=== PATIENT | male | born 1975 | race Caucasian/White ===

== ENCOUNTER 2020-03-10 15:19 | Outpatient (REF) | payer MEDICARE, MEDICAID, SELFPAY ==
[2020-03-10 16:20] LABS: MANUAL DIFF FLAG NO
[2020-03-10 16:29] LABS: Basophils Absolute Auto 0.1 X10*3/uL (0.0-0.2); Basophils Percent Auto 0.9 % (0-2); Eosinophils Absolute Auto 0.1 X10*3/uL (0.0-0.4); Eosinophils Percent Auto 1.9 % (0-4); Hematocrit 42.4 % (42-52); Hemoglobin 14.1 g/dl (14.0-18.0); Imm Gran Abs Auto 0.02 X10*3/uL (0.00-0.03); Imm Gran Pct Auto 0.3 % (0.0-0.4); Lymphocytes Absolute Auto 1.6 X10*3/uL (1.2-4.9); Lymphocytes Percent Auto 27.3 % (20-40); Mean Corpuscular HGB Conc 33.3 g/dl (31.0-36.0); Mean Corpuscular Volume 93.2 fL (80-98); Mean Platelet Volume 9.8 fL (9.4-12.4); Monocytes Absolute Auto 0.5 X10*3/uL (0.1-1.2); Monocytes Percent Auto 8.9 % (2-11); Neutrophils Absolute Auto 3.6 X10*3/uL (2.0-8.3); Neutrophils Percent Auto 60.7 % (45-73); Platelet Count 268 X10*3/uL (160-400); Red Blood Count 4.55 X10*6/uL (4.60-5.80); Red Cell Distribution Width 13.6 % (11.0-16.0); White Blood Count 5.9 X10*3/uL (4.8-10.8)
[2020-03-10 16:53] LABS: Alanine Aminotransferase 23 U/L (0-40); Albumin Level 4.7 g/dL (3.5-5.0); Alkaline Phosphatase 112 U/L (39-117); Anion Gap 13 (12-20); Aspartate Amino Transferase 18 U/L (5-37); Bilirubin Total 0.5 mg/dL (0.0-1.0); Blood Urea Nitrogen 15 mg/dL (9-16); C Reactive Protein 0.33 mg/dL (< or = 0.50); Calcium 9.6 mg/dL (8.4-10.2); Carbon Dioxide 26 mmol/L (22-29); Chloride 107 mmol/L (96-108); Estimated Glomerular Filt Rate > 60; Glucose Random 63 mg/dL (60-115); Potassium 4.4 mmol/l (3.3-5.1); Sodium 142 mmol/L (135-145); Total Protein 7.5 g/dL (6.5-8.0)
[2020-03-10 17:15] LABS: TSH reflex Free T4 1.23 mIU/mL (0.32-4.0)
[2020-03-10 17:30] LABS: Erythrocyte Sedimentation Rate 7 MM/HR (0-15)
[2020-03-13 00:02] LABS: Anti Nuclear Antibody Screen POSITIVE (NEGATIVE); Anti Nuclear Antibody Titer 1:40 titer
== END 2020-03-10 15:20 | disposition home or self-care (01) ==
LOC: HO.LAB 15:19
PROVIDERS: PCP Internal Medicine; Visit Provider Internal Medicine
DX: R21 Rash and other nonspecific skin eruption (principal); R76.8 Other specified abnormal immunological findings in serum
CPT/HCPCS: 36415; 80053; 84443; 85025; 85652; 86038; 86039; 86140

== ENCOUNTER 2020-10-02 12:51 | Outpatient (REF) | payer MEDICARE, MEDICAID, SELFPAY ==
--- NOTE | ~2020-10-02 | XR_ITS ---
EXAMINATION: XR HAND, RIGHT XR HAND, LEFT CLINICAL INFORMATION: Pain. COMPARISON: Bilateral hand and wrist radiographs dated 10/31/2018. TECHNIQUE: AP, oblique, and lateral views of the right and left hand and wrist. FINDINGS: Right Hand: No fracture or dislocation. Normal carpal alignment. No significant joint space narrowing or marginal osteophytes. No osseous erosion. No periarticular osteopenia. No abnormal soft tissue calcification. Left Hand: Redemonstration of an orthopedic screw within the scaphoid. No hardware fracture. Attenuation and irregularity through the proximal aspect of the scaphoid which appears similar when compared to the prior examination and likely represents chronic avascular necrosis. Unchanged anatomic alignment. No acute fracture or dislocation. Degenerative spurring redemonstrated posteriorly, unchanged. No new osseous erosion. XR/XR hand LT min 3V IMPRESSION: RIGHT HAND: Unremarkable examination. LEFT HAND: Orthopedic screw redemonstrated within the scaphoid. Attenuation of the proximal scaphoid with possible fragmentation and dorsal spurring, unchanged when compared to the prior examination. Findings likely represent chronic avascular necrosis.
--- NOTE | ~2020-10-02 | XR_ITS ---
EXAMINATION: XR HAND, RIGHT XR HAND, LEFT CLINICAL INFORMATION: Pain. COMPARISON: Bilateral hand and wrist radiographs dated 10/31/2018. TECHNIQUE: AP, oblique, and lateral views of the right and left hand and wrist. FINDINGS: Right Hand: No fracture or dislocation. Normal carpal alignment. No significant joint space narrowing or marginal osteophytes. No osseous erosion. No periarticular osteopenia. No abnormal soft tissue calcification. Left Hand: Redemonstration of an orthopedic screw within the scaphoid. No hardware fracture. Attenuation and irregularity through the proximal aspect of the scaphoid which appears similar when compared to the prior examination and likely represents chronic avascular necrosis. Unchanged anatomic alignment. No acute fracture or dislocation. Degenerative spurring redemonstrated posteriorly, unchanged. No new osseous erosion. XR/XR hand RT min 3V IMPRESSION: RIGHT HAND: Unremarkable examination. LEFT HAND: Orthopedic screw redemonstrated within the scaphoid. Attenuation of the proximal scaphoid with possible fragmentation and dorsal spurring, unchanged when compared to the prior examination. Findings likely represent chronic avascular necrosis.
[2020-10-02 14:02] LABS: MANUAL DIFF FLAG NO
[2020-10-02 14:17] LABS: Basophils Percent Auto 0.4 % (0-2); Eosinophils Absolute Auto 0.1 X10*3/uL (0.0-0.4); Eosinophils Percent Auto 1.7 % (0-4); Hematocrit 40.4 % (42-52); Hemoglobin 13.4 g/dl (14.0-18.0); Imm Gran Abs Auto 0.02 X10*3/uL (0.00-0.03); Imm Gran Pct Auto 0.3 % (0.0-0.4); Lymphocytes Absolute Auto 1.6 X10*3/uL (1.2-4.9); Lymphocytes Percent Auto 22.1 % (20-40); Mean Corpuscular HGB Conc 33.2 g/dl (31.0-36.0); Mean Corpuscular Volume 93.5 fL (80-98); Mean Platelet Volume 9.5 fL (9.4-12.4); Monocytes Absolute Auto 0.5 X10*3/uL (0.1-1.2); Monocytes Percent Auto 6.6 % (2-11); Neutrophils Absolute Auto 4.8 X10*3/uL (2.0-8.3); Neutrophils Percent Auto 68.9 % (45-73); Platelet Count 234 X10*3/uL (160-400); Red Blood Count 4.32 X10*6/uL (4.60-5.80); Red Cell Distribution Width 13.4 % (11.0-16.0)
[2020-10-02 14:36] LABS: Alanine Aminotransferase 22 U/L (0-40); Albumin Level 4.2 g/dL (3.5-5.0); Alkaline Phosphatase 108 U/L (39-117); Anion Gap 12 (12-20); Aspartate Amino Transferase 17 U/L (5-37); Bilirubin Total 0.2 mg/dL (0.0-1.0); Blood Urea Nitrogen 25 mg/dL (9-16); C Reactive Protein 0.36 mg/dL (< or = 0.50); Carbon Dioxide 27 mmol/L (22-29); Chloride 107 mmol/L (96-108); Estimated Glomerular Filt Rate > 60; Glucose Random 101 mg/dL (60-115); Potassium 4.8 mmol/L (3.3-5.1); Rheumatoid Factor < 15.0 IU/mL (<15.0); Sodium 141 mmol/L (135-145); Total Protein 6.8 g/dL (6.5-8.0)
[2020-10-02 14:46] LABS: Glucose Urine UA NEG (NEG); Leukocyte Esterase Urine NEG (NEG); Nitrite Urine NEG (NEG); PH 6.5 (5.0-8.0); Urine Blood NEG (NEG); Urine Ketones NEG (NEG); Urine Protein NEG (NEG-TRACE)
[2020-10-02 14:57] LABS: Thyroid Stimulating Hormone 0.38 uIU/mL (0.32-4.0)
[2020-10-02 15:04] LABS: Appearance Urine CLEAR; Color Urine YELLOW
[2020-10-02 15:06] LABS: Erythrocyte Sedimentation Rate 7 MM/HR (0-15)
[2020-10-02 15:55] LABS: RBC Urine 0-2 /HPF (0); WBC Urine 0-2 /HPF (0-4)
[2020-10-02 15:56] LABS: Squamous Epithelial Cell Urine 1+ /LPF
[2020-10-03 12:31] LABS: Anti DNA DS Antibody 1 IU/mL; Antibody to SS-A Antigen <1.0 NEG AI (<1.0 NEG); Antibody to SS-B Antigen <1.0 NEG AI (<1.0 NEG); SM/Ribonucleoprotein Ab <1.0 NEG AI (<1.0 NEG); Scleroderma 70 Antibody <1.0 NEG AI (<1.0 NEG); Smith Protein <1.0 NEG AI (<1.0 NEG)
[2020-10-05 13:06] LABS: Complement C3 135 mg/dL (82-185)
[2020-10-05 18:46] LABS: Thyroglobulin Antibodies <1 IU/mL (< or = 1); Thyroid Peroxidase Antibodies <1 IU/mL (<9)
[2020-10-06 22:36] LABS: Cyclic Citrullinated Peptide <16 UNITS
== END 2020-10-02 12:52 | disposition home or self-care (01) ==
LOC: HO.LAB 12:51
PROVIDERS: PCP Internal Medicine; Visit Provider Student in an Organized Health Care Education/Training Program
DX: R76.8 Other specified abnormal immunological findings in serum (principal); F31.9 Bipolar disorder, unspecified; F17.210 Nicotine dependence, cigarettes, uncomplicated; Z79.899 Other long term (current) drug therapy
CPT/HCPCS: 36415; 73130; 80053; 81001; 84443; 85025; 85652; 86140; 86160; 86200; 86225; 86235; 86376; 86431; 86800; 99202

== ENCOUNTER → 2020-10-28 11:38 | Outpatient (BNVA) | payer MEDICARE, MEDICAID, SELFPAY | PROVIDERS: PCP Internal Medicine; Visit Provider Student in an Organized Health Care Education/Training Program | DX: R76.8 Other specified abnormal immunological findings in serum (principal) | CPT/HCPCS: 99212 ==

== ENCOUNTER 2021-02-24 15:58 | Outpatient (REF) | payer MEDICARE, MEDICAID, SELFPAY ==
--- NOTE | ~2021-02-24 | XR_ITS ---
EXAMINATION: XR CERVICAL SPINE CLINICAL INFORMATION: Cervicalgia COMPARISON: None TECHNIQUE: 3 views of the cervical spine were obtained. FINDINGS: There are no prevertebral soft tissue or bony abnormalities demonstrated. No compression fractures or subluxations are identified. Alignment is maintained at the atlanto-axial articulation. The disc spaces are preserved. No endplate changes are seen. The prevertebral soft tissues are normal. XR/XR cervical spine 3V IMPRESSION: Unremarkable examination.
--- NOTE | ~2021-02-24 | XR_ITS ---
EXAMINATION: XR LUMBOSACRAL SPINE CLINICAL INFORMATION: Low back pain. COMPARISON: None TECHNIQUE: 3 views of the lumbosacral spine. FINDINGS: The vertebral bodies and posterior elements are normal. The disc spaces are preserved and the vertebral alignment is normal. The paraspinal soft tissues are normal. XR/XR lumbar spine 2-3V IMPRESSION: Unremarkable examination.
[2021-02-24 16:09] LABS: MANUAL DIFF FLAG NO
[2021-02-24 16:32] LABS: Basophils Percent Auto 0.4 % (0-2); Eosinophils Absolute Auto 0.2 X10*3/uL (0.0-0.4); Hematocrit 40.4 % (42.0-52.0); Hemoglobin 13.6 g/dl (14.0-18.0); Imm Gran Abs Auto 0.02 X10*3/uL (0.00-0.03); Imm Gran Pct Auto 0.3 % (0.0-0.4); Lymphocytes Absolute Auto 1.8 X10*3/uL (1.2-4.9); Lymphocytes Percent Auto 24.2 % (20-40); Mean Corpuscular HGB Conc 33.7 g/dl (31.0-36.0); Mean Corpuscular Hemoglobin 30.9 pg (27.0-33.0); Mean Corpuscular Volume 91.8 fL (80.0-98.0); Mean Platelet Volume 9.1 fL (9.4-12.4); Monocytes Absolute Auto 0.6 X10*3/uL (0.1-1.2); Monocytes Percent Auto 7.5 % (2-11); Neutrophils Absolute Auto 4.8 x10*3/uL (2.0-8.3); Neutrophils Percent Auto 64.6 % (45-73); Platelet Count 272 X10*3/uL (160-400); Red Cell Distribution Width 13.2 % (11.0-16.0); White Blood Count 7.4 X10*3/uL (4.8-10.8)
[2021-02-24 16:55] LABS: Alanine Aminotransferase 20 U/L (0-40); Albumin Level 4.3 g/dL (3.5-5.0); Alkaline Phosphatase 106 U/L (39-117); Anion Gap 11 (12-20); Aspartate Amino Transferase 15 U/L (5-37); Bilirubin Total 0.4 mg/dL (0.0-1.0); Blood Urea Nitrogen 16 mg/dL (9-16); Calcium 8.9 mg/dL (8.4-10.2); Carbon Dioxide 26 mmol/L (22-29); Chloride 107 mmol/L (96-108); Cholesterol 238 mg/dL; Estimated Glomerular Filt Rate 58; Glucose Fasting 94 mg/dL (60-99); HDL Cholesterol 39 mg/dL; LDL Cholesterol Calculated 145 mg/dl; Potassium 4.6 mmol/L (3.3-5.1); Sodium 139 mmol/L (135-145); Triglycerides 273 mg/dL
[2021-02-24 17:18] LABS: Prostate Specific Antigen 0.48 ng/mL (<0.05-4.0); TSH reflex Free T4 1.12 uIU/mL (0.32-4.0); Vitamin D 25-OH Total 21.8 ng/mL (>30)
[2021-02-24 17:30] LABS: Erythrocyte Sedimentation Rate 7 MM/HR (0-15)
[2021-02-24 18:12] LABS: Appearance Urine CLEAR; Color Urine YELLOW; Glucose Urine UA NEG (NEG); Leukocyte Esterase Urine NEG (NEG); Nitrite Urine NEG (NEG); Specific Gravity - Urine 1.025 (1.005-1.025); Urine Blood NEG (NEG); Urine Ketones NEG (NEG); Urine Protein NEG (NEG-TRACE)
[2021-02-27 12:07] LABS: Anti Nuclear Antibody Screen NEGATIVE (NEGATIVE)
== END 2021-02-24 15:59 | disposition home or self-care (01) ==
LOC: HO.XRAY 15:58
PROVIDERS: PCP Internal Medicine; Visit Provider Internal Medicine
DX: Z12.5 Encounter for screening for malignant neoplasm of prostate (principal); M54.50 Low back pain, unspecified; M54.10 Radiculopathy, site unspecified; M54.2 Cervicalgia; R10.9 Unspecified abdominal pain; E78.00 Pure hypercholesterolemia, unspecified; I10 Essential (primary) hypertension; R21 Rash and other nonspecific skin eruption; R76.8 Other specified abnormal immunological findings in serum; E55.9 Vitamin D deficiency, unspecified; N40.0 Benign prostatic hyperplasia without lower urinary tract symptoms
CPT/HCPCS: 36415; 72040; 72100; 80053; 80061; 81003; 82306; 84153; 84443; 85025; 85652; 86038; 86039

== ENCOUNTER 2021-08-18 14:46 | Outpatient (REF) | payer MEDICARE, MEDICAID, SELFPAY ==
[2021-08-18 14:57] LABS: MANUAL DIFF FLAG NO
[2021-08-18 15:26] LABS: Basophils Percent Auto 0.7 % (0-2); Eosinophils Absolute Auto 0.1 X10*3/uL (0.0-0.4); Eosinophils Percent Auto 1.2 % (0-4); Hematocrit 43.3 % (42.0-52.0); Hemoglobin 14.3 g/dl (14.0-18.0); Imm Gran Abs Auto 0.02 X10*3/uL (0.00-0.03); Imm Gran Pct Auto 0.3 % (0.0-0.4); Lymphocytes Absolute Auto 1.5 X10*3/uL (1.2-4.9); Lymphocytes Percent Auto 25.6 % (20-40); Mean Corpuscular Hemoglobin 30.7 pg (27.0-33.0); Mean Corpuscular Volume 92.9 fL (80.0-98.0); Mean Platelet Volume 9.5 fL (9.4-12.4); Monocytes Absolute Auto 0.5 X10*3/uL (0.1-1.2); Monocytes Percent Auto 8.8 % (2-11); Neutrophils Absolute Auto 3.7 x10*3/uL (2.0-8.3); Neutrophils Percent Auto 63.4 % (45-73); Platelet Count 299 X10*3/uL (160-400); Red Blood Count 4.66 X10*6/uL (4.60-5.80); Red Cell Distribution Width 13.5 % (11.0-16.0); White Blood Count 5.8 X10*3/uL (4.8-10.8)
[2021-08-18 15:48] LABS: Alanine Aminotransferase 32 U/L (0-40); Albumin Level 4.4 g/dL (3.5-5.0); Alkaline Phosphatase 126 U/L (39-117); Anion Gap 10 (12-20); Aspartate Amino Transferase 20 U/L (5-37); Bilirubin Total 0.2 mg/dL (0.0-1.0); Blood Urea Nitrogen 16 mg/dL (9-16); Calcium 9.6 mg/dL (8.4-10.2); Carbon Dioxide 28 mmol/L (22-29); Chloride 108 mmol/L (96-108); Cholesterol 326 mg/dL; Estimated Glomerular Filt Rate 58; Glucose Fasting 104 mg/dL (60-99); HDL Cholesterol 43 mg/dL; Potassium 4.4 mmol/L (3.3-5.1); Sodium 142 mmol/L (135-145); Total Protein 7.8 g/dL (6.5-8.0); Triglycerides 504 mg/dL
[2021-08-18 16:08] LABS: Prostate Specific Antigen Scr 0.67 ng/mL (<0.05-4.0); TSH reflex Free T4 1.83 uIU/mL (0.32-4.0)
[2021-08-20 15:01] LABS: Anti Nuclear Antibody Screen NEGATIVE (NEGATIVE)
[2021-08-21 08:02] LABS: Anti DNA DS Antibody <1 IU/mL
== END 2021-08-18 14:47 | disposition home or self-care (01) ==
LOC: HO.LAB 14:46
PROVIDERS: PCP Internal Medicine; Visit Provider Internal Medicine
DX: Z00.00 Encounter for general adult medical examination without abnormal findings (principal); Z12.5 Encounter for screening for malignant neoplasm of prostate; R76.8 Other specified abnormal immunological findings in serum; I10 Essential (primary) hypertension; E78.00 Pure hypercholesterolemia, unspecified; E55.9 Vitamin D deficiency, unspecified
CPT/HCPCS: 36415; 80053; 80061; 82306; 84153; 84443; 85025; 86038; 86039; 86225

== ENCOUNTER 2022-03-30 12:30 | Outpatient (REF) | payer MEDICARE, MEDICAID, SELFPAY ==
[2022-03-30 12:41] LABS: MANUAL DIFF FLAG NO
[2022-03-30 13:30] LABS: Basophils Percent Auto 0.5 % (0-2); Eosinophils Absolute Auto 0.2 X10*3/uL (0.0-0.4); Eosinophils Percent Auto 3.4 % (0-4); Hematocrit 42.5 % (42.0-52.0); Hemoglobin 13.9 g/dl (14.0-18.0); Imm Gran Abs Auto 0.02 X10*3/uL (0.00-0.03); Imm Gran Pct Auto 0.3 % (0.0-0.4); Lymphocytes Absolute Auto 1.7 X10*3/uL (1.2-4.9); Lymphocytes Percent Auto 26.7 % (20-40); Mean Corpuscular HGB Conc 32.7 g/dl (31.0-36.0); Mean Corpuscular Hemoglobin 30.2 pg (27.0-33.0); Mean Corpuscular Volume 92.4 fL (80.0-98.0); Mean Platelet Volume 9.6 fL (9.4-12.4); Monocytes Absolute Auto 0.5 X10*3/uL (0.1-1.2); Monocytes Percent Auto 8.4 % (2-11); Neutrophils Absolute Auto 3.8 x10*3/uL (2.0-8.3); Neutrophils Percent Auto 60.7 % (45-73); Platelet Count 279 X10*3/uL (160-400); Red Cell Distribution Width 13.3 % (11.0-16.0); White Blood Count 6.2 X10*3/uL (4.8-10.8)
[2022-03-30 14:07] LABS: Alanine Aminotransferase 23 U/L (0-40); Albumin Level 4.1 g/dL (3.5-5.0); Alkaline Phosphatase 95 U/L (39-117); Anion Gap 12 (12-20); Aspartate Amino Transferase 19 U/L (5-37); Bilirubin Total 0.5 mg/dL (0.0-1.0); Blood Urea Nitrogen 13 mg/dL (9-16); Calcium 8.9 mg/dL (8.4-10.2); Carbon Dioxide 28 mmol/L (22-29); Chloride 106 mmol/L (96-108); Cholesterol 238 mg/dL; Estimated Glomerular Filt Rate > 60; Glucose Fasting 93 mg/dL (60-99); HDL Cholesterol 36 mg/dL; LDL Cholesterol Calculated 136 mg/dl; Potassium 4.5 mmol/L (3.3-5.1); Sodium 141 mmol/L (135-145); TSH reflex Free T4 0.46 uIU/mL (0.32-4.0); Total Protein 6.5 g/dL (6.5-8.0); Triglycerides 334 mg/dL; Vitamin D 25-OH Total 14.3 ng/mL (>30)
== END 2022-03-30 12:31 | disposition home or self-care (01) ==
LOC: HO.LAB 12:30
PROVIDERS: PCP Internal Medicine; Visit Provider Internal Medicine
DX: E78.00 Pure hypercholesterolemia, unspecified (principal); E55.9 Vitamin D deficiency, unspecified; I10 Essential (primary) hypertension
CPT/HCPCS: 36415; 80053; 80061; 82306; 84443; 85025

== ENCOUNTER → 2022-05-18 15:03 | Outpatient (BNVA) | payer MEDICARE, MEDICAID, SELFPAY | PROVIDERS: PCP Internal Medicine; Visit Provider Nurse Practitioner Family | DX: N50.819 Testicular pain, unspecified (principal); N52.9 Male erectile dysfunction, unspecified | CPT/HCPCS: 51798; 99202 ==

== ENCOUNTER 2022-06-08 15:00 | Outpatient (REF) | payer MEDICARE, MEDICAID, SELFPAY ==
--- NOTE | ~2022-06-08 | US_ITS ---
EXAMINATION: US SCROTUM CLINICAL INFORMATION: Testicular pain, unspecified. COMPARISON: None TECHNIQUE: A sonogram of the scrotum was performed assessing maria-scale appearance and color Doppler flow. Spectral Doppler analysis of the arterial and venous flow were performed in the testes bilaterally. FINDINGS: RIGHT: Right testicle measures 4.6 x 2.3 x 2.8 cm, volume 15.5 mL. No focal testicular parenchymal lesions are visualized. Spectral Doppler analysis of the arterial and venous flow is normal in the right testis. Right epididymal head is normal in size. No right varicocele is seen. Right epididymal Doppler flow is normal. LEFT: Left testicle measures 4.4 x 2.6 x 3.0 cm, volume 18.3 mL. No focal testicular parenchymal lesions are visualized. Spectral Doppler analysis of the arterial and venous flow is normal in the left testis. Left epididymal head is normal in size. There is a small left hydrocele. No varicocele is seen. Left epididymal Doppler flow is normal. US/US scrotum IMPRESSION: 1. No testicular mass or torsion is seen bilaterally. There is no varicocele. 2. There is a small right hydrocele.
== END 2022-06-08 15:01 | disposition home or self-care (01) ==
LOC: HO.US 15:00
PROVIDERS: Visit Provider Nurse Practitioner Family
DX: N50.819 Testicular pain, unspecified (principal)
CPT/HCPCS: 76870

== ENCOUNTER → 2022-06-15 14:23 | Outpatient (BNVA) | payer MEDICARE, MEDICAID, SELFPAY | PROVIDERS: PCP Internal Medicine; Visit Provider Nurse Practitioner Family | DX: R10.31 Right lower quadrant pain (principal); R10.32 Left lower quadrant pain; N50.819 Testicular pain, unspecified | CPT/HCPCS: 99212 ==

== ENCOUNTER 2022-12-14 16:02 | Outpatient (AMB) | payer MEDICARE, MEDICAID, SELFPAY ==
--- NOTE | 2022-12-14 16:09 | MHC.PC.OV ---
Vital Signs 12/14/22 16:14 Height 5 ft 7 in Weight 165 lb 2 oz BMI 25.9 BP 110/72 Blood Pressure Location Lt brachial Position Sitting Pulse 91 Pulse Source Pulse Oximeter Pulse Oximetry (%) 95 Oxygen Delivery Method Room Air Intake Visit Reasons: Hyperlipidemia Intake Note: Patient is here to follow up on hyperlipidemia. Complain of pain in left hip and left testicles. [employer] Application Consultant Required: No Accompanied by: Self / Same As Patient Allergies oxcarbazepine [Trileptal] Allergy (Intermediate, Verified 12/14/22 17:02) rash Medication List - Last Reconciled 12/14/22 by Manuel Morgan MD quetiapine 300 mg PO BEDTIME 90 days Tobacco use date assessed: 12/14/22 Dental Screening Dental Screen Date: 12/14/22 Did you have a dental visit in the last 12 months?: No Did you have a dental problem in the last 6 months where you did not have access to dental care?: No Was dental information given to patient?: No HPI Hyperlipidemia HPI Details Patient comes in today for his follow up visit - was last seen in March 2022 as he missed his appt back in the spring of this year Patient states that he has been experiencing recurrent sharp left-sided chest pains for the past few weeks States that his chest pains do not appear to be related to activity or exertion as he gets them as well when he is sitting down or lying down He denies any associated dizziness, headaches or SOB with his chest pains No nausea/vomiting, no abdominal pain and no change in bowel habits noted Adds that he has been experiencing increased pain over his left lower back and behind his left hip for the past couple of weeks Does not recall any recent injury or trauma to his lower back or hip States that he also needs his Quetiapine Rx refilled today [facility] Medical History GERD (gastroesophageal reflux disease) Vitamin D deficiency Low back pain Overweight (BMI 25.0-29.9) Urethral stricture Pure hypercholesterolemia Smoker Rash Bipolar disorder Positive NENO (antinuclear antibody) Surgical History History of colonoscopy History of cystoscopy (~12/22/18) History of mandibular surgery History of surgery on left wrist (~1997) Family History Father Medical history unknown Mother Medical history unknown Other Mental health problem Substance abuse Social History Housing: House Alcohol intake: current Alcohol intake frequency: holidays/special occasions only Patient Tobacco Use Status: Current everyday Tobacco user Tobacco use type: Cigarette Cigarettes Per Day: 3 Years Smoked: 15 e-Cigarette/Vaping Use: Never Used service: No Current occupational status: unemployed Cognitive needs: No Hearing needs: No Vision needs: No Questionnaire PHQ-9 Over the last 2 weeks, how often have you been bothered by any of the following problems? 1. Little interest or pleasure in doing things: several days 2. Feeling down, depressed, or hopeless: more than half the days 3. Trouble falling or staying asleep, or sleeping too much: nearly every day 4. Feeling tired or having little energy: several days 5. Poor appetite or overeating: several days 6. Feeling bad about yourself - or that you are a failure or have let yourself or your family down: not at all 7. Trouble concentrating on things, such as reading the newspaper or watching television: not at all 8. Moving or speaking so slowly that other people could have noticed. Or the opposite - being so fidgety or restless that you have been moving around a lot more than usual: not at all 9. Thoughts that you would be better off or of hurting yourself in some way: not at all Total score: 8 Depression Screening Interpretation: Positive Depression Screening Follow-up: Existing condition and In treatment 85477 - PHQ-9 Billing: Yes Source: Developed by Drs. Oswald Domínguez, Valerie Hendricks, Alexis Riley and colleagues, with an educational katerine from [employer]. Thrive Questionnaire Date Thrive assessed: 12/14/22 I am a: Patient What is your living situation today?: I have a steady place to live Within the past 12 months, did the food you bought not last and you didn't have the money to get more?: Never true Within the past 12 months, did you worry whether your food would run out before you got money to buy more?: Never true Do you have trouble paying for medicines?: No Do you have trouble getting transportation to medical appointments?: No Do you have trouble paying your heating and electricity bill?: No Do you have trouble taking care of your child, family member or friend?: No Do you have trouble with day-to-day activities such as bathing, preparing meals, shopping, managing finances, etc.?: No Are you currently unemployed and looking for a job?: No Are you interested in more education?: No Please select the resources that you would like help with: None Currently or been in a relationship where the following occur: no concerns reported AUDIT C Alcohol Use Questionnaire (AUDIT-C) 1. How often do you have a drink containing alcohol?: Monthly or less 2. How many drinks containing alcohol do you have on a typical day when you are drinking?: 1 or 2 3. How often do you have six or more drinks on one occasion?: Never Total Score: 1 Score Reviewed/Action Taken: Yes MIKE-7 AMB Questionnaire MIKE-7 Date MIKE - 7 assessed: 12/14/22 Feeling nervous, anxious, or on edge: 2 = More than half the days Not being able to stop or control worryin = Nearly every day Worrying too much about different things: 3 = Nearly every day Trouble relaxin = Several days Being so restless that it is hard to sit still: 3 = Nearly every day Becoming easily annoyed or irritable: 3 = Nearly every day Feeling afraid as if something awful might happen: 3 = Nearly every day Total MIKE-7 score (0-4 normal; 5-9 mild; 10-14 moderate; 15-21 severe): 18 Source: Developed by Drs. Oswald Domínguez, Valerie Hendricks, Alexis iRley and colleagues, with an educational katerine from [employer]. Review of Systems Const Denies chills, Denies fatigue, Denies fever(s) and Denies headache(s) ENT Denies dysphagia, Denies dizziness, Denies otalgia, Denies headache(s), Denies neck pain, Denies odynophagia and Denies sore throat Card Reports chest pain (on and off, sharp, left-sided chest pains), Denies chest pain with activity, Denies palpitations and Denies dyspnea Resp Denies chest congestion, Denies cough, Denies dyspnea and Denies wheezing GI Denies abdominal pain, Denies constipation, Denies dysphagia, Denies heartburn, Denies diarrhea, Denies loose stools, Denies nausea, Denies odynophagia and Denies vomiting Denies difficulty urinating (improved with Tamsulosin), Denies dysuria, Denies nocturia and Denies testicular pain Musc Reports back pain (especially over the left side behind the hip lately), Reports arthralgias (over both hands, on and off) and Denies neck pain Skin/Breast Denies rash Neuro Denies dizziness and Denies headache(s) Endo Denies fatigue and Denies palpitations Aller/Immun Denies wheezing Physical exam (Primary Care) Vital Signs: Last Vital Signs Pulse 91 12/14/22 16:14 BP 110/72 12/14/22 16:14 Pulse Ox 95 12/14/22 16:14 Oxygen Delivery Method Room Air 12/14/22 16:14 BMI result Body Mass Index 25.9 Tobacco/Smoking Status: Tobacco use Status Tobacco use date assessed 12/14/22 12/14/22 16:18 Patient Tobacco Use Status Current everyday Tobacco 12/14/22 16:11 Tobacco use type Cigarette 12/14/22 16:27 e-Cigarette/Vaping Use Never Used 12/14/22 16:11 PHQ-9: PHQ-9 Score PHQ-9: Total score 8 12/14/22 17:02 Depression Screening Interpretation: Positive Depression Screening Follow-up: Existing condition and In treatment Thrive Assessment: Date of Thrive Assessment Date Thrive assessed 12/14/22 12/14/22 16:18 Currently or been in a relationship where the following occur: no concerns reported Const General: no acute distress and alert HENMT Ears: TM's normal bilaterally and EAC's normal Throat: Yes posterior oropharynx normal and Yes tonsils normal (no TP congestion) Neck Neck: Yes no lymphadenopathy and Yes supple Chest Chest palpation & inspection: normal palpation of entire chest wall and no tenderness Resp Auscultation: clear to auscultation bilaterally, no rales and no wheezes Cardio Rate: regular rate Rhythm: regular rhythm Heart sounds: no murmurs GI Palpation (GI): Soft to palpation and nontender Auscultation: normal bowel sounds Back/Spine/Pelvis Thoracic/Lumbar Spine: paraspinal muscle tenderness on the left in the mid lumbar and in the lower lumbar and lumbar spinal tenderness Skin Rashes: no rashes Extrem General: Yes no clubbing, cyanosis or edema Left lower extremity: hip/thigh Details: tenderness Location: of the hip Location: posteriorly Assessment and Plan Assessment & Plan (1) Pure hypercholesterolemia: Code(s): E78.00 - Pure hypercholesterolemia, unspecified Plan: Patient has no follow up labs done recently; is reminded that his triglyceride, total and LDL cholesterol levels were all still elevated back in March 2022 even though they have improved from his previous numbers in August 2021 Reinforced low cholesterol diet Continue Fenofibrate 160 mg QD for now; will need to consider adding or switching over to statins if his LDL cholesterol continues to stay elevated Will repeat his labs and fasting lipids [facility] for follow up (2) GERD (gastroesophageal reflux disease): Code(s): K21.9 - Gastro-esophageal reflux disease without esophagitis Qualifiers: Esophagitis presence: without esophagitis Qualified Code(s): K21.9 - Gastro-esophageal reflux disease without esophagitis Plan: Dietary restrictions reinforced His previous chest symptoms improved significantly with PPI Tx but he is again experiencing some recurrent left-sided chest pains, which may be musculoskeletal in origin Continue Omeprazole 20 mg QD (3) Urinary hesitancy: Comment: (+) Hx of urethral stricture, s/p dilatation Code(s): R39.11 - Hesitancy of micturition Plan: Continue Tamsulosin 0.4 mg Q HS - patient's urinary symptoms have improved significantly with Rx Follow up with urology as scheduled (4) Left-sided chest pain: Code(s): R07.9 - Chest pain, unspecified Plan: Advised that his recurrent chest pains appear to be mostly musculoskeletal in origin as they are not related to activity or exertion but will go ahead and check his serum troponin level as well since he is going for his labs SALLY Advised that in case his troponin levels are elevated, which would be completely unexpected, we will contact him right away (5) Left low back pain: Code(s): M54.50 - Low back pain, unspecified Qualifiers: Chronicity: unspecified Sciatica presence: without sciatica Qualified Code(s): M54.50 - Low back pain, unspecified Plan: Will send him for x-rays of the lumbar spine for further evaluation (6) Left hip pain: Code(s): M25.552 - Pain in left hip Plan: Will send him for x-rays of the left hip for further evaluation (7) Bipolar disorder: Code(s): F31.9 - Bipolar disorder, unspecified Qualifiers: Active/Remission status: currently active Current bipolar episode type: mixed Current episode severity: unspecified Qualified Code(s): F31.60 - Bipolar disorder, current episode mixed, unspecified Plan: Continue Quetiapine 300 mg Q HS; states that he is currently no longer on Latuda 40 mg Q AM Follow up with psychiatry as scheduled (8) Smoker: Code(s): F17.200 - Nicotine dependence, unspecified, uncomplicated Plan: Counseled again on smoking cessation (9) Overweight (BMI 25.0-29.9): Code(s): E66.3 - Overweight Plan: Reinforced diet/exercise as tolerated/lose weight Plan Follow up in 4 months Orders: Orders XR hip LT min 2V 12/14/22 M25.552 - Pain in left hip Complete Blood Count Auto Diff 12/14/22 I10 - Essential (primary) hypertension, R07.9 - Chest pain, unspecified Lipid Panel 12/14/22 E78.00 - Pure hypercholesterolemia, unspecified, R07.9 - Chest pain, unspecified TSH reflex Free T4 12/14/22 E78.00 - Pure hypercholesterolemia, unspecified, R07.9 - Chest pain, unspecified UA CC w/rflx Micro + Cult 12/14/22 R07.9 - Chest pain, unspecified, R30.0 - Dysuria Erythrocyte Sedimentation Rate 12/14/22 M79.7 - Fibromyalgia, R07.9 - Chest pain, unspecified Troponin-I High Sensitivity 12/14/22 R07.9 - Chest pain, unspecified XR sacroiliac joint min 3V 12/14/22 M54.50 - Low back pain, unspecified C Reactive Protein 12/14/22 R07.9 - Chest pain, unspecified Comprehensive Brady. Panel Fast 12/14/22 E78.00 - Pure hypercholesterolemia, unspecified, R07.9 - Chest pain, unspecified Vitamin D 25-OH Total 12/14/22 E55.9 - Vitamin D deficiency, unspecified, R07.9 - Chest pain, unspecified Medications: Refilled quetiapine 300 mg PO BEDTIME 90 days 90 tabs 0RF F31.60 - Bipolar disorder, current episode mixed, unspecified Coding Level of Care Code Est Pt Level 4 (59556) Diagnoses Pure hypercholesterolemia E78.00 Gastroesophageal reflux disease without esophagitis K21.9 Esophagitis presence: without esophagitis Urinary hesitancy R39.11 Left-sided chest pain R07.9 Left-sided low back pain without sciatica, unspecified chronicity M54.50 Chronicity: unspecified Sciatica presence: without sciatica Left hip pain M25.552 Bipolar affective disorder, current episode mixed, current episode severity unspecified F31.60 Active/Remission status: currently active Current bipolar episode type: mixed Current episode severity: unspecified Smoker F17.200 Overweight (BMI 25.0-29.9) E66.3
[2022-12-14 16:14] VITALS: BP 110/72; PULSE 91; O2SAT 95; BMI 25.9
== END 2022-12-14 17:04 | disposition home or self-care (01) ==
PROVIDERS: PCP Internal Medicine; Visit Provider Internal Medicine
DX: K21.9 Gastro-esophageal reflux disease without esophagitis (principal); F31.60 Bipolar disorder, current episode mixed, unspecified; F17.210 Nicotine dependence, cigarettes, uncomplicated; E78.00 Pure hypercholesterolemia, unspecified; R39.11 Hesitancy of micturition; R07.9 Chest pain, unspecified; M54.50 Low back pain, unspecified; M25.552 Pain in left hip; E66.3 Overweight
CPT/HCPCS: 99214

== ENCOUNTER 2023-04-24 14:14 | Outpatient (REF) | payer MEDICARE, MEDICAID, SELFPAY ==
--- NOTE | ~2023-04-24 | XR_ITS ---
EXAMINATION: XR SACROILIAC JOINTS CLINICAL INFORMATION: Lower back pain. COMPARISON: Lumbar spine radiographs dated 02/25/2021. TECHNIQUE: AP and bilateral Judet views of the sacroiliac joints FINDINGS: Bones and soft tissues are normal. No fracture. Alignment is anatomic. Sacroiliac joint spaces are well-maintained without erosions or surrounding sclerosis. Again, there is sacralization of the right L5 transverse process. XR/XR hip LT min 2V IMPRESSION: 1. Normal sacroiliac joints. 2. Again, there is sacralization of the right L5 transverse process. EXAMINATION: XR HIP, LEFT CLINICAL INFORMATION: Pain. COMPARISON: None available. TECHNIQUE: AP and frog-leg lateral views of the left hip. FINDINGS: No fracture. Alignment is anatomic. Hip joint space is maintained. Soft tissues are unremarkable. IMPRESSION: Normal left hip.
--- NOTE | ~2023-04-24 | XR_ITS ---
EXAMINATION: XR SACROILIAC JOINTS CLINICAL INFORMATION: Lower back pain. COMPARISON: Lumbar spine radiographs dated 02/25/2021. TECHNIQUE: AP and bilateral Judet views of the sacroiliac joints FINDINGS: Bones and soft tissues are normal. No fracture. Alignment is anatomic. Sacroiliac joint spaces are well-maintained without erosions or surrounding sclerosis. Again, there is sacralization of the right L5 transverse process. XR/XR sacroiliac joint min 3V IMPRESSION: 1. Normal sacroiliac joints. 2. Again, there is sacralization of the right L5 transverse process. EXAMINATION: XR HIP, LEFT CLINICAL INFORMATION: Pain. COMPARISON: None available. TECHNIQUE: AP and frog-leg lateral views of the left hip. FINDINGS: No fracture. Alignment is anatomic. Hip joint space is maintained. Soft tissues are unremarkable. IMPRESSION: Normal left hip.
[2023-04-24 14:55] LABS: MANUAL DIFF FLAG NO
[2023-04-24 15:34] LABS: Appearance Urine Clear; Color Urine Yellow; Glucose Urine UA Negative (Negative); Leukocyte Esterase Urine Negative (Negative); Nitrite Urine Negative (Negative); PH 6.5 (5.0-9.0); Specific Gravity - Urine 1.025 (1.005-1.025); Urine Blood Negative (Negative); Urine Ketones Trace mg/dL (Negative); Urine Protein Negative (Neg-Trace)
[2023-04-24 15:35] LABS: Basophils Percent Auto 0.5 % (0-2); Eosinophils Absolute Auto 0.1 X10*3/uL (0.0-0.4); Hematocrit 44.2 % (42.0-52.0); Hemoglobin 14.9 g/dl (14.0-18.0); Imm Gran Abs Auto 0.04 X10*3/uL (0.00-0.03); Imm Gran Pct Auto 0.5 % (0.0-0.4); Lymphocytes Absolute Auto 1.8 X10*3/uL (1.2-4.9); Lymphocytes Percent Auto 21.9 % (20-40); Mean Corpuscular HGB Conc 33.7 g/dl (31.0-36.0); Mean Corpuscular Volume 94.8 fL (80.0-98.0); Mean Platelet Volume 9.1 fL (9.4-12.4); Monocytes Absolute Auto 0.6 X10*3/uL (0.1-1.2); Monocytes Percent Auto 7.3 % (2-11); Neutrophils Absolute Auto 5.8 x10*3/uL (2.0-8.3); Neutrophils Percent Auto 68.8 % (45-73); Platelet Count 305 X10*3/uL (160-400); Red Blood Count 4.66 X10*6/uL (4.60-5.80); Red Cell Distribution Width 14.3 % (11.0-16.0); White Blood Count 8.4 X10*3/uL (4.8-10.8)
[2023-04-24 16:00] LABS: Alanine Aminotransferase 34 U/L (0-40); Albumin Level 4.1 g/dL (3.5-5.0); Alkaline Phosphatase 97 U/L (39-117); Anion Gap 11 (12-20); Aspartate Amino Transferase 21 U/L (5-37); Bilirubin Total 0.4 mg/dL (0.0-1.0); Blood Urea Nitrogen 14 mg/dL (9-16); C Reactive Protein 0.31 mg/dL (< or = 0.50); Carbon Dioxide 29 mmol/L (22-29); Chloride 105 mmol/L (96-108); Cholesterol 271 mg/dL (<200); Estimated Glomerular Filt Rate > 60; Glucose Fasting 74 mg/dL (60-99); HDL Cholesterol 46 mg/dL (>40); Potassium 4.2 mmol/L (3.3-5.1); Sodium 141 mmol/L (135-145); Total Protein 7.1 g/dL (6.5-8.0); Triglycerides 441 mg/dL (<150)
[2023-04-24 16:07] LABS: Troponin-I High Sensitivity < 2.7 ng/L (<3.5-35.0)
[2023-04-24 16:14] LABS: Erythrocyte Sedimentation Rate 5 MM/HR (0-15); TSH reflex Free T4 1.26 uIU/mL (0.32-4.0); Vitamin D 25-OH Total 13.8 ng/mL (>30)
== END 2023-04-24 14:15 | disposition home or self-care (01) ==
LOC: HO.XRAY 14:14
PROVIDERS: PCP Internal Medicine; Visit Provider Internal Medicine
DX: M25.552 Pain in left hip (principal); M54.50 Low back pain, unspecified; M79.7 Fibromyalgia; R07.9 Chest pain, unspecified; I10 Essential (primary) hypertension; E78.00 Pure hypercholesterolemia, unspecified; E55.9 Vitamin D deficiency, unspecified; R30.0 Dysuria
CPT/HCPCS: 36415; 72202; 73502; 80053; 80061; 81003; 82306; 84443; 84484; 85025; 85652; 86140

== ENCOUNTER 2023-04-24 15:09 | Outpatient (AMB) | payer MEDICARE, MEDICAID, SELFPAY ==
[2023-04-24 15:17] VITALS: BP 128/86; PULSE 70; O2SAT 98; BMI 26.1
--- NOTE | 2023-04-24 15:17 | A.OFFPC_ITS ---
Vital Signs 04/24/23 15:17 Height 5 ft 7 in Weight 166 lb 8 oz BMI 26.1 BP 128/86 Blood Pressure Location Lt brachial Position Sitting Pulse 70 Pulse Source Pulse Oximeter Pulse Oximetry (%) 98 Oxygen Delivery Method Room Air Intake Visit Reasons: 4 month f/u Nurse Intern Required: No Accompanied by: Self / Same As Patient Allergies oxcarbazepine [Trileptal] Allergy (Intermediate, Verified 04/24/23 15:48) rash Medication List - Last Reconciled 04/24/23 by Manuel Morgan MD quetiapine 300 mg PO BEDTIME 90 days Tobacco use date assessed: 04/24/23 Dental Screening Dental Screen Date: 04/24/23 Did you have a dental visit in the last 12 months?: No Did you have a dental problem in the last 6 months where you did not have access to dental care?: No Was dental information given to patient?: No HPI 4 month f/u HPI Details Patient comes in today for his follow up visit States that he feels okay at present but relates an incident recently wherein he was driving and all of a sudden felt very weak and fatigued and states that he had to test puller onto the side of the road for a while as he was afraid / felt like he was going to pass out at the time States that his symptoms lasted for about 10 minutes before subsiding on their own gradually wherein he could resume driving and got himself home at some point States that he did not experience any sensation of chest pain/pressure, palpitations or sensation of his heart racing or any SOB when the above symptoms occurred Is wondering what could have triggered the above symptoms and is concerned that they could happen again all of a sudden without any warning States that he currently feels okay and denies any headaches or dizziness Denies any exertional chest pains or SOB No nausea/vomiting, no abdominal pain No change in bowel habits noted States that he just had his follow up labs and lower back x-rays done a few minutes ago prior to this appt - results of his labs and x-rays are all not yet available for review at this time [facility] Medical History GERD (gastroesophageal reflux disease) Vitamin D deficiency Low back pain Overweight (BMI 25.0-29.9) Urethral stricture Pure hypercholesterolemia Smoker Rash Bipolar disorder Positive NENO (antinuclear antibody) Surgical History History of colonoscopy History of cystoscopy (~12/22/18) History of mandibular surgery History of surgery on left wrist (~1997) Family History Father Medical history unknown Mother Medical history unknown Other Mental health problem Substance abuse Social History Housing: House Alcohol intake: current Alcohol intake frequency: holidays/special occasions only Patient Tobacco Use Status: Current everyday Tobacco user Tobacco use type: Cigarette Cigarettes Per Day: 3 Years Smoked: 15 e-Cigarette/Vaping Use: Never Used service: No Current occupational status: unemployed Cognitive needs: No Hearing needs: No Vision needs: No Questionnaire PHQ-9 Over the last 2 weeks, how often have you been bothered by any of the following problems? 1. Little interest or pleasure in doing things: several days 2. Feeling down, depressed, or hopeless: more than half the days 3. Trouble falling or staying asleep, or sleeping too much: nearly every day 4. Feeling tired or having little energy: several days 5. Poor appetite or overeating: several days 6. Feeling bad about yourself - or that you are a failure or have let yourself or your family down: not at all 7. Trouble concentrating on things, such as reading the newspaper or watching television: not at all 8. Moving or speaking so slowly that other people could have noticed. Or the opposite - being so fidgety or restless that you have been moving around a lot more than usual: not at all 9. Thoughts that you would be better off or of hurting yourself in some way: not at all Total score: 8 Depression Screening Interpretation: Positive Depression Screening Follow-up: Existing condition and In treatment Depression Screening Done: Yes 46284 - PHQ-9 Billing: Yes Source: Developed by Drs. Oswald Domínguez, Valerie Hendricks, Alexis Riley and colleagues, with an educational katerine from [employer]. Thrive Questionnaire Date Thrive assessed: 04/24/23 I am a: Patient What is your living situation today?: I have a steady place to live Within the past 12 months, did the food you bought not last and you didn't have the money to get more?: Never true Within the past 12 months, did you worry whether your food would run out before you got money to buy more?: Never true Do you have trouble paying for medicines?: No Do you have trouble getting transportation to medical appointments?: No Do you have trouble paying your heating and electricity bill?: No Do you have trouble taking care of your child, family member or friend?: No Do you have trouble with day-to-day activities such as bathing, preparing meals, shopping, managing finances, etc.?: No Are you currently unemployed and looking for a job?: No Are you interested in more education?: No Please select the resources that you would like help with: None Currently or been in a relationship where the following occur: no concerns reported AUDIT C Alcohol Use Questionnaire (AUDIT-C) 1. How often do you have a drink containing alcohol?: Monthly or less 2. How many drinks containing alcohol do you have on a typical day when you are drinking?: 1 or 2 3. How often do you have six or more drinks on one occasion?: Never Total Score: 1 Score Reviewed/Action Taken: Yes MIKE-7 AMB Questionnaire MIKE-7 Date MIKE - 7 assessed: 04/24/23 Feeling nervous, anxious, or on edge: 2 = More than half the days Not being able to stop or control worryin = Nearly every day Worrying too much about different things: 3 = Nearly every day Trouble relaxin = Several days Being so restless that it is hard to sit still: 3 = Nearly every day Becoming easily annoyed or irritable: 3 = Nearly every day Feeling afraid as if something awful might happen: 3 = Nearly every day Total MIKE-7 score (0-4 normal; 5-9 mild; 10-14 moderate; 15-21 severe): 18 Source: Developed by Drs. Oswald Domínguez, Valerie Hendricks, Alexis Riley and colleagues, with an educational katerine from [employer]. Review of Systems Const Denies chills, Reports fatigue, Denies fever(s), Denies headache(s) and Reports weakness (recently - see HPI) ENT Denies dysphagia, Denies dizziness, Denies otalgia, Denies headache(s), Denies neck pain, Denies odynophagia and Denies sore throat Card Reports chest pain (on and off, sharp, left-sided chest pains), Denies chest pain with activity, Denies palpitations, Denies dyspnea and Denies dyspnea on exertion Resp Denies cough, Denies dyspnea, Denies dyspnea on exertion and Denies wheezing GI Denies abdominal pain, Denies constipation, Denies dysphagia, Denies heartburn, Denies diarrhea, Denies nausea, Denies odynophagia and Denies vomiting Denies difficulty urinating (improved with Tamsulosin), Denies dysuria, Denies nocturia and Denies urinary frequency Musc Reports back pain (especially over the left side behind the hip lately), Reports arthralgias (over both hands, on and off) and Denies neck pain Skin/Breast Denies rash Neuro Denies dizziness, Denies headache(s) and Reports weakness (recently - see HPI) Endo Reports fatigue and Denies palpitations Aller/Immun Denies wheezing Physical exam (Primary Care) Vital Signs: Last Vital Signs Pulse 70 04/24/23 15:17 BP 128/86 04/24/23 15:17 Pulse Ox 98 04/24/23 15:17 Oxygen Delivery Method Room Air 04/24/23 15:17 BMI result Body Mass Index 26.1 Tobacco/Smoking Status: Tobacco use Status Tobacco use date assessed 04/24/23 04/24/23 15:21 Patient Tobacco Use Status Current everyday Tobacco 04/24/23 15:21 Tobacco use type Cigarette 04/24/23 15:21 e-Cigarette/Vaping Use Never Used 04/24/23 15:21 PHQ-9: PHQ-9 Score PHQ-9: Total score 8 04/24/23 15:54 Depression Screening Interpretation: Positive Depression Screening Follow-up: Existing condition and In treatment Thrive Assessment: Date of Thrive Assessment Date Thrive assessed 04/24/23 04/24/23 15:21 Currently or been in a relationship where the following occur: no concerns reported Const General: no acute distress and alert HENMT Ears: TM's normal bilaterally and EAC's normal Throat: Yes posterior oropharynx normal and Yes tonsils normal (no TP congestion) Neck Neck: Yes no lymphadenopathy and Yes supple Chest Chest palpation & inspection: no tenderness Resp Auscultation: clear to auscultation bilaterally, no rales and no wheezes Cardio Rate: regular rate Rhythm: regular rhythm Heart sounds: no murmurs GI Palpation (GI): Soft to palpation and nontender Auscultation: normal bowel sounds Back/Spine/Pelvis Thoracic/Lumbar Spine: lumbar spinal tenderness Skin Rashes: no rashes Extrem General: Yes no clubbing, cyanosis or edema Left lower extremity: hip/thigh Details: tenderness Location: of the hip Location: posteriorly Assessment and Plan Assessment & Plan (1) Pure hypercholesterolemia: Code(s): E78.00 - Pure hypercholesterolemia, unspecified Plan: Patient just had his follow up labs done a few minutes ago - results are not yet available for review at this time He is reminded that his triglyceride, total and LDL cholesterol levels were all still elevated back in March 2022 although they have improved slightly from his previous numbers in August 2021 Reinforced low cholesterol diet Continue Fenofibrate 160 mg QD for now Further recommendations to follow depending on how his current labs come out Will recheck his labs and fasting lipids again in 4 months for follow up (2) GERD (gastroesophageal reflux disease): Code(s): K21.9 - Gastro-esophageal reflux disease without esophagitis Qualifiers: Esophagitis presence: without esophagitis Qualified Code(s): K21.9 - Gastro-esophageal reflux disease without esophagitis Plan: Dietary restrictions reinforced His previous chest symptoms have improved significantly with PPI Tx but he has been experiencing again some on and off left-sided chest pains, which are likely musculoskeletal in origin Continue Omeprazole 20 mg QD (3) Left-sided chest pain: Code(s): R07.9 - Chest pain, unspecified Plan: Have advised that his recent on and off chest pains appear to be mostly musculoskeletal in origin as they do not seem to be related to activity or exertion We have also included a serum troponin level to his recent labs - will follow up his lab results SALLY If his troponin level is elevated OR if his symptoms continue to persist, may need to consider sending patient for cardiac evaluation/stress testing (4) Urinary hesitancy: Comment: (+) Hx of urethral stricture, s/p dilatation Code(s): R39.11 - Hesitancy of micturition Plan: Continue Tamsulosin 0.4 mg Q HS - patient's urinary symptoms have improved significantly with Rx Follow up with urology as scheduled (5) Left low back pain: Code(s): M54.50 - Low back pain, unspecified Qualifiers: Chronicity: unspecified Sciatica presence: without sciatica Qualified Code(s): M54.50 - Low back pain, unspecified Plan: Reinforced activity and weight-lifting restrictions to avoid aggravating his lower back symptoms X-rays of the left hip and SI joint were done earlier today - results are not yet available for review at this time Lumbar spine x-rays done back in 2020 came out unremarkable (6) Left hip pain: Code(s): M25.552 - Pain in left hip Plan: He was sent for x-rays of the left hip for further evaluation - x-rays were done a few minutes ago and results are not yet available for review at this time (7) Bipolar disorder: Code(s): F31.9 - Bipolar disorder, unspecified Qualifiers: Active/Remission status: currently active Current bipolar episode type: mixed Current episode severity: unspecified Qualified Code(s): F31.60 - Bipolar disorder, current episode mixed, unspecified Plan: Continue Quetiapine 300 mg Q HS; states that he has not been taking Latuda 40 mg Q AM for a few months now and has been doing okay without it Follow up with psychiatry as scheduled (8) Smoker: Code(s): F17.200 - Nicotine dependence, unspecified, uncomplicated Plan: Counseled again on smoking cessation (9) Overweight (BMI 25.0-29.9): Code(s): E66.3 - Overweight Plan: Reinforced diet/exercise as tolerated/lose weight Plan Follow up in 4 months Orders: Orders Comprehensive [place]. Panel Fast 4 Months E78.00 - Pure hypercholesterolemia, unspecified TSH reflex Free T4 4 Months E78.00 - Pure hypercholesterolemia, unspecified Lipid Panel 4 Months E78.00 - Pure hypercholesterolemia, unspecified Complete Blood Count Auto Diff 4 Months D64.9 - Anemia, unspecified Vitamin D 25-OH Total 4 Months E55.9 - Vitamin D deficiency, unspecified Coding Level of Care Code Est Pt Level 4 (57744) Diagnoses Pure hypercholesterolemia E78.00 Gastroesophageal reflux disease without esophagitis K21.9 Esophagitis presence: without esophagitis Left-sided chest pain R07.9 Urinary hesitancy R39.11 Left-sided low back pain without sciatica, unspecified chronicity M54.50 Chronicity: unspecified Sciatica presence: without sciatica Left hip pain M25.552 Bipolar affective disorder, current episode mixed, current episode severity unspecified F31.60 Active/Remission status: currently active Current bipolar episode type: mixed Current episode severity: unspecified Smoker F17.200 Overweight (BMI 25.0-29.9) E66.3
== END 2023-04-24 15:55 | disposition home or self-care (01) ==
PROVIDERS: PCP Internal Medicine; Visit Provider Internal Medicine
DX: E78.00 Pure hypercholesterolemia, unspecified (principal); K21.9 Gastro-esophageal reflux disease without esophagitis; F31.60 Bipolar disorder, current episode mixed, unspecified; R07.9 Chest pain, unspecified; R39.11 Hesitancy of micturition; M54.50 Low back pain, unspecified; M25.552 Pain in left hip; F17.210 Nicotine dependence, cigarettes, uncomplicated; E66.3 Overweight
CPT/HCPCS: 99214

== ENCOUNTER 2023-08-01 09:39 | Outpatient (AMB) | payer MEDICARE, MEDICAID, SELFPAY ==
--- NOTE | 2023-08-01 09:41 | A.OFFPC_ITS ---
Vital Signs 08/01/23 09:42 Height 5 ft 7 in Weight 169 lb 2 oz BMI 26.5 BP 140/94 H Blood Pressure Location Lt brachial Position Sitting Pulse 86 Pulse Source Pulse Oximeter Pulse Oximetry (%) 97 Oxygen Delivery Method Room Air Intake Visit Reasons: Ed follow up Intake Note: The patient has presented to [facility] ED with upper chest pain accompanied by numbness in the left arm and sensations of alternating heat and cold. However, today's primary concern revolves around hip and groin pain persisting for well over a year. Track Welder Required: No Accompanied by: Self / Same As Patient Allergies oxcarbazepine [Trileptal] Allergy (Intermediate, Verified 11/07/23 16:32) rash Medication List - Last Reconciled 08/01/23 by Manuel Morgan MD cholecalciferol (vitamin D3) 50 mcg PO DAILY 90 days fenofibrate 160 mg PO DAILY 90 days quetiapine 300 mg PO BEDTIME 90 days Tobacco use date assessed: 04/24/23 Dental Screening Dental Screen Date: 04/24/23 HPI Ed follow up HPI Details Patient comes in today for his HDF follow up visit He apparently went to the ED at [facility] last week on 07/22/23 for left-sided chest pains Recalls that he woke up that day feeling weird and started experiencing sharp left-sided chest pains after a while States that he was also experiencing radiating of the pain into his left shoulder and down his left arm, prompting him to go to the ER for further evaluation States that he was told that his BP was high when he was at the ER, but his cardiac work ups done all came back normal and he was subsequently sent home with instructions to follow up with his PCP as soon as possible Patient also admitted to relapsing and using some cocaine a couple of days prior to his ER visit; denies any IVDU States that he still has some lingering pain over the left side of his chest but this has been gradually subsiding lately He reports that he has been experiencing increased/recurrent pain over his left hip area, left lower abdomen and left groin area for over a year now and that the pain is still bothering him a lot He had x-rays of the left hip and SI joint done back in April 2023 for further evaluation - x-rays came out normal He had lumbar spine x-rays done in 2020 that also came out normal, and this was confirmed on his SI joint x-rays done recently He denies any headaches or dizziness Denies any SOB No nausea/vomiting and no change in bowel habits noted PFSH Medical History GERD (gastroesophageal reflux disease) Vitamin D deficiency Low back pain Overweight (BMI 25.0-29.9) Urethral stricture Pure hypercholesterolemia Smoker Rash Bipolar disorder Positive NENO (antinuclear antibody) Surgical History History of colonoscopy History of cystoscopy (~12/22/18) History of mandibular surgery History of surgery on left wrist (~1997) Family History Father Medical history unknown Mother Medical history unknown Other Mental health problem Substance abuse Social History Housing: House Alcohol intake: current Alcohol intake frequency: holidays/special occasions only Patient Tobacco Use Status: Current everyday Tobacco user Tobacco use type: Cigarette Cigarettes Per Day: 3 Years Smoked: 15 e-Cigarette/Vaping Use: Never Used service: No Current occupational status: unemployed Cognitive needs: No Hearing needs: No Vision needs: Yes Questionnaire Thrive Questionnaire Date Thrive assessed: 04/24/23 MIKE-7 AMB Questionnaire MIKE-7 Date MIKE - 7 assessed: 04/24/23 Source: Developed by Drs. Oswald Domínguez, Valerie Hendricks, Alexis Riley and colleagues, with an educational katerine from [employer]. Review of Systems Const Denies chills, Denies fatigue, Denies fever(s) and Denies headache(s) ENT Denies dysphagia, Denies dizziness, Denies otalgia, Denies headache(s), Denies neck pain, Denies odynophagia and Denies sore throat Card Denies chest pain, Denies palpitations and Denies dyspnea Resp Denies cough, Denies dyspnea and Denies wheezing GI Reports abdominal pain (over the left lower quadrant), Denies constipation, Denies dysphagia, Denies heartburn, Denies diarrhea, Denies nausea, Denies odynophagia and Denies vomiting Denies difficulty urinating (improved with Tamsulosin), Denies dysuria, Denies nocturia and Denies urinary frequency Musc Reports back pain (especially over the left side behind the hip), Reports arthralgias (over both hands, on and off; in the left hip) and Denies neck pain Skin/Breast Denies rash Neuro Denies dizziness and Denies headache(s) Endo Denies fatigue and Denies palpitations Aller/Immun Denies wheezing Physical exam (Primary Care) Vital Signs: Last Vital Signs Pulse 86 08/01/23 09:42 BP 140/94 H 08/01/23 09:42 Pulse Ox 97 08/01/23 09:42 Oxygen Delivery Method Room Air 08/01/23 09:42 BMI result Body Mass Index 26.5 Tobacco/Smoking Status: Tobacco use Status Tobacco use date assessed 04/24/23 08/01/23 09:41 Patient Tobacco Use Status Current everyday Tobacco 08/01/23 09:41 Tobacco use type Cigarette 08/01/23 09:41 e-Cigarette/Vaping Use Never Used 08/01/23 09:41 Thrive Assessment: Date of Thrive Assessment Date Thrive assessed 04/24/23 08/01/23 09:41 Const General: no acute distress and alert HENMT Throat: Yes posterior oropharynx normal and Yes tonsils normal (no TP congestion) Neck Neck: Yes no lymphadenopathy and Yes supple Thyroid: Thyroid normal Resp Auscultation: clear to auscultation bilaterally, no rales and no wheezes Cardio Rate: regular rate Rhythm: regular rhythm Heart sounds: no murmurs GI Palpation (GI): Soft to palpation, Tenderness to palpation present (GI) in the LLQ, no guarding, not rigid and No Rebound tenderness present Auscultation: normal bowel sounds General: Yes no CVA tenderness Back/Spine/Pelvis Back: no CVA tenderness Thoracic/Lumbar Spine: lumbar spinal tenderness Skin Rashes: no rashes Extrem General: Yes no clubbing, cyanosis or edema Assessment and Plan Assessment & Plan (1) Left-sided chest pain: Code(s): R07.9 - Chest pain, unspecified Plan: Is most likely non-cardiac as cardiac work ups done at the ER came out negative Patient admitted to relapsing and using cocaine again recently so this may be a contributor to his recent chest pains and patient is urged to quit illicit drug use (2) Left inguinal pain: Code(s): R10.32 - Left lower quadrant pain Plan: Will send patient for abdominal and pelvic CT for further evaluation of his left inguinal and LLQ abdominal pain, which has been going on for over a year now with no clear etiology for his symptoms Plan Follow up as scheduled next month Orders: Orders CT abdomen pelvis wo IV con 08/01/23 R10.2 - Pelvic and perineal pain, R10.32 - Left lower quadrant pain Basic Metabolic Panel 08/01/23 R10.32 - Left lower quadrant pain Coding Level of Care Code Est Pt Level 4 (07443) Diagnoses Left-sided chest pain R07.9 Left inguinal pain R10.32
[2023-08-01 09:42] VITALS: BP 140/94; PULSE 86; O2SAT 97; BMI 26.5
== END 2023-08-01 10:34 | disposition home or self-care (01) ==
PROVIDERS: PCP Internal Medicine; Visit Provider Internal Medicine
DX: R07.9 Chest pain, unspecified (principal); R10.32 Left lower quadrant pain
CPT/HCPCS: 99214

== ENCOUNTER 2023-11-07 16:02 | Outpatient (AMB) | payer OTHER, SELFPAY ==
[2023-11-07 16:04] VITALS: BP 124/68; PULSE 89; O2SAT 97; BMI 26.0
--- NOTE | 2023-11-07 16:04 | MHC.PC.OV ---
Vital Signs 11/07/23 16:04 Height 5 ft 7 in Weight 166 lb BMI 26.0 BP 124/68 Blood Pressure Location Lt brachial Position Sitting Pulse 89 Pulse Source Pulse Oximeter Pulse Oximetry (%) 97 Oxygen Delivery Method Room Air Intake Visit Reasons: experiencing mental health issues Allergies oxcarbazepine [Trileptal] Allergy (Intermediate, Verified 11/07/23 16:32) rash Medication List - Last Reconciled 11/07/23 by Manuel Morgan MD cholecalciferol (vitamin D3) 50 mcg PO DAILY 90 days fenofibrate 160 mg PO DAILY 90 days quetiapine 300 mg PO BEDTIME 90 days Tobacco use date assessed: 04/24/23 Dental Screening Dental Screen Date: 04/24/23 HPI experiencing mental health issues HPI Details Patient comes in today for his follow up visit States that he has an appointment coming up with Prachi Sarmiento at the outpatient psychiatry clinic and he plans on keeping that appointment States that he has been experiencing increasing symptoms of ashlee, agitation, depression, and anxiety lately and is currently only on Quetiapine 300 mg Q HS Recalls taking Vraylar in the past and is wondering if this will help again if he goes back on it Thinks that he messed up his left knee this past weekend playing [employer] and he may have sprained his knee in the process as he has been experiencing increased pain and has also noticed some swelling in his knee lately, especially over the medial side of the knee States that he is still experiencing a lot of pain over his left lower quadrant area and has not yet been scheduled for his abdominal and pelvic CT He denies any headaches or dizziness Denies any chest pains, no SOB No nausea/vomiting and no change in bowel habits noted [facility] Medical History GERD (gastroesophageal reflux disease) Vitamin D deficiency Low back pain Overweight (BMI 25.0-29.9) Urethral stricture Pure hypercholesterolemia Smoker Rash Bipolar disorder Positive NENO (antinuclear antibody) Surgical History History of colonoscopy History of cystoscopy (~12/22/18) History of mandibular surgery History of surgery on left wrist (~1997) Family History Father Medical history unknown Mother Medical history unknown Other Mental health problem Substance abuse Social History Housing: House Alcohol intake: current Alcohol intake frequency: holidays/special occasions only Patient Tobacco Use Status: Current everyday Tobacco user Tobacco use type: Cigarette Cigarettes Per Day: 3 Years Smoked: 15 Packs per year/per ci.25 e-Cigarette/Vaping Use: Never Used service: No Current occupational status: unemployed Cognitive needs: No Hearing needs: No Vision needs: Yes Questionnaire PHQ-9 Over the last 2 weeks, how often have you been bothered by any of the following problems? 1. Little interest or pleasure in doing things: several days 2. Feeling down, depressed, or hopeless: more than half the days 3. Trouble falling or staying asleep, or sleeping too much: nearly every day 4. Feeling tired or having little energy: several days 5. Poor appetite or overeating: several days 6. Feeling bad about yourself - or that you are a failure or have let yourself or your family down: not at all 7. Trouble concentrating on things, such as reading the newspaper or watching television: not at all 8. Moving or speaking so slowly that other people could have noticed. Or the opposite - being so fidgety or restless that you have been moving around a lot more than usual: not at all 9. Thoughts that you would be better off or of hurting yourself in some way: not at all Total score: 8 Depression Screening Interpretation: Positive Depression Screening Follow-up: Existing condition and In treatment Depression Screening Done: Yes 42939 - PHQ-9 Billing: Yes Source: Developed by Drs. Oswald Domínguez, Valerie Hendricks, Alexis Riley and colleagues, with an educational katerine from [employer] Thrive Questionnaire Date Thrive assessed: 04/24/23 AUDIT C Alcohol Use Questionnaire (AUDIT-C) 1. How often do you have a drink containing alcohol?: Monthly or less 2. How many drinks containing alcohol do you have on a typical day when you are drinking?: 1 or 2 3. How often do you have six or more drinks on one occasion?: Never Total Score: 1 Score Reviewed/Action Taken: Yes MIKE-7 AMB Questionnaire MIKE-7 Date MIKE - 7 assessed: 04/24/23 Source: Developed by Drs. Oswald Domínguez, Valerie Hendricks, Alexis Riley and colleagues, with an educational katerine from [employer] Review of Systems Const Denies chills, Denies fatigue, Denies fever(s) and Denies headache(s) ENT Denies dysphagia, Denies dizziness, Denies otalgia, Denies headache(s), Denies neck pain, Denies odynophagia and Denies sore throat Card Denies chest pain, Denies palpitations and Denies dyspnea Resp Denies cough, Denies dyspnea and Denies wheezing GI Reports abdominal pain (over the left lower quadrant), Denies constipation, Denies dysphagia, Denies heartburn, Denies diarrhea, Denies nausea, Denies odynophagia and Denies vomiting Denies difficulty urinating (improved with Tamsulosin), Denies dysuria, Denies nocturia and Denies urinary frequency Musc Reports back pain (especially over the left side behind the hip), Reports arthralgias (over both hands, on and off) and Denies neck pain Skin/Breast Denies rash Neuro Denies dizziness and Denies headache(s) Endo Denies fatigue and Denies palpitations Aller/Immun Denies wheezing Physical exam (Primary Care) Vital Signs: Last Vital Signs Pulse 89 11/07/23 16:04 BP 124/68 11/07/23 16:04 Pulse Ox 97 11/07/23 16:04 Oxygen Delivery Method Room Air 11/07/23 16:04 BMI result Body Mass Index 26.0 Tobacco/Smoking Status: Tobacco use Status Tobacco use date assessed 04/24/23 11/07/23 16:07 Patient Tobacco Use Status Current everyday Tobacco 11/07/23 16:07 Tobacco use type Cigarette 11/07/23 16:07 e-Cigarette/Vaping Use Never Used 11/07/23 16:07 PHQ-9: PHQ-9 Score PHQ-9: Total score 8 11/07/23 16:07 Depression Screening Interpretation: Positive Depression Screening Follow-up: Existing condition and In treatment Thrive Assessment: Date of Thrive Assessment Date Thrive assessed 04/24/23 11/07/23 16:07 Const General: no acute distress and alert HENMT Ears: TM's normal bilaterally and EAC's normal Throat: Yes posterior oropharynx normal and Yes tonsils normal (no TP congestion) Neck Neck: Yes no lymphadenopathy and Yes supple Thyroid: Thyroid normal Resp Auscultation: clear to auscultation bilaterally, no rales and no wheezes Cardio Rate: regular rate Rhythm: regular rhythm Heart sounds: no murmurs GI Palpation (GI): Soft to palpation, Tenderness to palpation present (GI) in the LLQ, no guarding, not rigid and No Rebound tenderness present Auscultation: normal bowel sounds General: Yes no CVA tenderness Back/Spine/Pelvis Back: no CVA tenderness Thoracic/Lumbar Spine: lumbar spinal tenderness Skin Rashes: no rashes Extrem General: Yes no clubbing, cyanosis or edema Left lower extremity: knee Details: tenderness Location: of the medial joint line and swelling Assessment and Plan Assessment & Plan (1) Pain and swelling of left knee: Code(s): M25.562 - Pain in left knee; M25.462 - Effusion, left knee Plan: Will send patient for x-rays of the left knee for further evaluation (2) Left inguinal pain: Code(s): R10.32 - Left lower quadrant pain Plan: He was previously sent for abdominal and pelvic CT for further evaluation - he is still waiting for this to be scheduled (3) Pure hypercholesterolemia: Code(s): E78.00 - Pure hypercholesterolemia, unspecified Plan: He is reminded that his triglyceride, total and LDL cholesterol levels were all still elevated when last checked in April 2023 and were higher than they were previously in March 2022 Reinforced low cholesterol diet Continue Fenofibrate 160 mg QD for now Will have him recheck his labs and fasting lipids again for follow up in a couple of months BEFORE he comes back for his next visit - previously ordered labs are updated today (4) GERD (gastroesophageal reflux disease): Code(s): K21.9 - Gastro-esophageal reflux disease without esophagitis Qualifiers: Esophagitis presence: without esophagitis Qualified Code(s): K21.9 - Gastro-esophageal reflux disease without esophagitis Plan: Dietary restrictions reinforced He used to take Omeprazole 20 mg QD but has not had it in a while - states that he feels okay without the Rx at this time (5) Urinary hesitancy: Comment: (+) Hx of urethral stricture, s/p dilatation Code(s): R39.11 - Hesitancy of micturition Plan: Continue Tamsulosin 0.4 mg Q HS - patient's urinary symptoms have improved significantly with Rx Follow up with urology as scheduled (6) Left low back pain: Code(s): M54.50 - Low back pain, unspecified Qualifiers: Chronicity: unspecified Sciatica presence: without sciatica Qualified Code(s): M54.50 - Low back pain, unspecified Plan: Reinforced activity and weight-lifting restrictions to avoid aggravating his lower back symptoms X-rays of the left hip and SI joint done back in April 2023 came out normal, with only sacralization of the right L5 transverse process seen Lumbar spine x-rays done back in 2020 also came out unremarkable (7) Bipolar disorder: Code(s): F31.9 - Bipolar disorder, unspecified Qualifiers: Active/Remission status: currently active Current bipolar episode type: mixed Current episode severity: unspecified Qualified Code(s): F31.60 - Bipolar disorder, current episode mixed, unspecified Plan: Continue Quetiapine 300 mg Q HS He used to take Latuda 40 mg Q AM but has not been taking it since last year States that he was doing okay without it until the past few weeks, when his mood symptoms got a lot worse He has been referred to and is now scheduled to be seen by Prachi Sarmiento at the outpatient psychiatry clinic here at [facility] for initial consultation in a couple of days (8) Smoker: Code(s): F17.200 - Nicotine dependence, unspecified, uncomplicated Plan: Counseled again on smoking cessation (9) Overweight (BMI 25.0-29.9): Code(s): E66.3 - Overweight Plan: Reinforced diet/exercise as tolerated/lose weight Plan Follow up as scheduled in December 2023 Orders: Orders XR knee LT 4V Today M25.462 - Effusion, left knee, M25.562 - Pain in left knee Coding Level of Care Code Est Pt Level 4 (58955) Diagnoses Pain and swelling of left knee M25.562; M25.462 Left inguinal pain R10.32 Pure hypercholesterolemia E78.00 Gastroesophageal reflux disease without esophagitis K21.9 Esophagitis presence: without esophagitis Urinary hesitancy R39.11 Left-sided low back pain without sciatica, unspecified chronicity M54.50 Chronicity: unspecified Sciatica presence: without sciatica Bipolar affective disorder, current episode mixed, current episode severity unspecified F31.60 Active/Remission status: currently active Current bipolar episode type: mixed Current episode severity: unspecified Smoker F17.200 Overweight (BMI 25.0-29.9) E66.3
== END 2023-11-07 16:47 | disposition home or self-care (01) ==
PROVIDERS: PCP Internal Medicine; Visit Provider Internal Medicine
DX: M25.562 Pain in left knee (principal); M25.462 Effusion, left knee; R10.32 Left lower quadrant pain; E78.00 Pure hypercholesterolemia, unspecified; K21.9 Gastro-esophageal reflux disease without esophagitis; R39.11 Hesitancy of micturition; M54.50 Low back pain, unspecified; F17.200 Nicotine dependence, unspecified, uncomplicated
CPT/HCPCS: 99214

== ENCOUNTER 2023-12-04 10:41 | Outpatient (AMB) | payer OTHER, SELFPAY ==
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
== END 2023-12-04 11:28 | disposition home or self-care (01) ==
LOC: HO.HOP 10:41
PROVIDERS: PCP Internal Medicine; Visit Provider Clinical Nurse Specialist Psychiatric/Mental Health
DX: F31.60 Bipolar disorder, current episode mixed, unspecified (principal); F41.9 Anxiety disorder, unspecified
CPT/HCPCS: 90792

== ENCOUNTER → 2023-12-04 10:41 | Outpatient (BNVA) | payer OTHER, SELFPAY | PROVIDERS: PCP Internal Medicine; Visit Provider Clinical Nurse Specialist Psychiatric/Mental Health | DX: F31.60 Bipolar disorder, current episode mixed, unspecified (principal); F41.9 Anxiety disorder, unspecified | CPT/HCPCS: 90792 ==

== ENCOUNTER 2023-12-28 14:23 | Outpatient (AMB) | payer OTHER, SELFPAY ==
--- NOTE | 2023-12-28 14:50 | MHC.OFFVISPS ---
Intake Intake Visit Reasons: f/u consultation Master Data Analyst Required: No Allergies oxcarbazepine [Trileptal] Allergy (Intermediate, Verified 11/07/23 16:32) rash Medication List - Last Reconciled 12/28/23 by Micheline Mitchell APRN cholecalciferol (vitamin D3) 50 mcg PO DAILY 90 days fenofibrate 160 mg PO DAILY 90 days guanfacine ER 1 mg PO DAILY quetiapine 300 mg PO BEDTIME 90 days quetiapine ER (Seroquel XR) 300 mg PO BEDTIME HPI- Psychiatric Chief Complaint: f/u consultation HPI Narrative: pt reports continued depression and anxiety, restlessness and agitation. pt reports trouble concentrating feeling hopeless and don. He worries every day, feels tense and can't relax. He reports feeling easily irritable and frustrated, over-reacting at times. He reports passive SI but no plan and no intent. He reports no effect from guanfacine. Past Psychiatric History: multiple IPLOC last time was 8 years ago; [facility] and [facility] THC use in past and [facility] for psych. has made suicide attemtps in past OD on pills and cut wrists but its been 8+ yrs since last time Subjective Subjective Subjective Medication Compliance: Yes Side effects from medications: No Review of Systems Medical Review of Systems: unchanged Mental Status Exam Mental Status Exam Patient Appearance: Well Grooomed Patient Orientation: Person, Place, Time and Situation Level of Consciousness: Awake, Appropriate and Alert Patient Behavior: Appropriate and Cooperative Mood Description: Anxious and Sad Affect Description: Anxious and Sad Patient Cognition Impaired: No Ability to Follow Directions: Good Speech Pattern: Clear, Appropriate and Coherent Memory Description: Intact Hallucinations: None Delusions: Not Present Thought Process: Intact and Goal Oriented Thought Content: positive for Intact, positive for Preoccupation and positive for Loose Associations Judgement: Fair Assessment and Plan Assessment & Plan (1) Bipolar disorder, current episode mixed, moderate: Status: Acute Code(s): F31.62 - Bipolar disorder, current episode mixed, moderate (2) PTSD (post-traumatic stress disorder): Status: Acute Code(s): F43.10 - Post-traumatic stress disorder, unspecified Plan stop guanfacine start lithium 300mg BID continue seroquel 300mg at bedtime continue seroquel ER 300mg at bedtime Medications: New lithium carbonate 300 mg PO BID 60 caps 1RF Refilled quetiapine 300 mg PO BEDTIME 90 days 90 tabs 0RF F31.60 - Bipolar disorder, current episode mixed, unspecified Discontinued guanfacine ER Discontinued Reason: Doctor's Order 1 mg PO DAILY 30 tabs 0RF Counseling and coordination of Care Pt. Self Management counseling: Exercise, Maintenance-social rhythm, Mod caffeine/ETOH intake, Sleep hygiene, Behavior activation and General coping skills Medication management counseling: Effectiveness, Side effects, Dosing range, Duration, Drug interaction and Adherence Diagnosis and Prognosis Counseling: Accuracy of diagnosis, Prognosis over time, Impact of diagnosis on life functions and Adequacy of current interventions Details: I spent 30 minutes reviewing the record, seeing the patient and documenting in the medical record. Counseling provided to the patient/caregiver as outlined below. Addressed patient/caregiver concerns regarding current medication regime including effective adherence. Addressed patient/caregiver concerns regarding diagnosis and prognosis including accuracy of diagnosis, prognosis over time, impact of diagnosis. Addressed patient/caregiver concerns regarding impact of recent stressors. [facility] Medical History GERD (gastroesophageal reflux disease) Vitamin D deficiency Low back pain Overweight (BMI 25.0-29.9) Urethral stricture Pure hypercholesterolemia Smoker Rash Bipolar disorder Positive NENO (antinuclear antibody) Surgical History History of colonoscopy History of cystoscopy (~12/22/18) History of mandibular surgery History of surgery on left wrist (~1997) Family History Father Medical history unknown Mother Medical history unknown Other Mental health problem Substance abuse Social History Housing: House Alcohol intake: current Alcohol intake frequency: holidays/special occasions only Patient Tobacco Use Status: Current everyday Tobacco user Tobacco use type: Cigarette Cigarettes Per Day: 3 Years Smoked: 15 e-Cigarette/Vaping Use: Never Used service: No Current occupational status: unemployed Cognitive needs: No Hearing needs: No Vision needs: Yes Social History: lives with mother nephew ; pt has supportive GF; he is not able to work due to symptoms Substance History: THC in past - now 2-3 times a a week small amounts; ETOH on weekend up to 4 beers; uses cocaine 1-2 times a month never used opiates, heroin, or pills. Trauma History: childhood Coding Level of Care Code Est Pt Level 4 (94275) Diagnoses Bipolar disorder, current episode mixed, moderate F31.62 PTSD (post-traumatic stress disorder) F43.10
== END 2023-12-28 15:37 | disposition home or self-care (01) ==
LOC: HO.HOP 14:23
PROVIDERS: PCP Internal Medicine; Visit Provider Clinical Nurse Specialist Psychiatric/Mental Health
DX: F31.62 Bipolar disorder, current episode mixed, moderate (principal); F43.10 Post-traumatic stress disorder, unspecified
CPT/HCPCS: 99214

== ENCOUNTER → 2023-12-28 14:23 | Outpatient (BNVA) | payer OTHER, SELFPAY | PROVIDERS: PCP Internal Medicine; Visit Provider Clinical Nurse Specialist Psychiatric/Mental Health | DX: F31.62 Bipolar disorder, current episode mixed, moderate (principal); F43.10 Post-traumatic stress disorder, unspecified | CPT/HCPCS: 99212 ==

== ENCOUNTER 2024-01-29 15:01 | Outpatient (AMB) | payer OTHER, SELFPAY ==
--- NOTE | 2024-01-29 15:09 | A.OFFPSYCH_ITS ---
Intake Intake Visit Reasons: depression Drug Safety Specialist Required: No Allergies oxcarbazepine [Trileptal] Allergy (Intermediate, Verified 11/07/23 16:32) rash Medication List - Last Reconciled 01/29/24 by Micheline Mitchell APRN cholecalciferol (vitamin D3) 50 mcg PO DAILY 90 days fenofibrate 160 mg PO DAILY 90 days lithium carbonate 300 mg PO BID quetiapine 300 mg PO BEDTIME 90 days quetiapine ER (Seroquel XR) 300 mg PO BEDTIME HPI- Psychiatric Chief Complaint: depression HPI Narrative: pt not sleeping well despite medication; mood fair but still frustrated at times; feeling depressed; no motivation; no energy; trouble withintitating tasks and finishing tasks; gets esily distracted. compliant with medications ; no side effects Past Psychiatric History: multiple IPLOC last time was 8 years ago; [facility] and [facility] fro THC use in past and [facility] for psych. has made suicide attemtps in past OD on pills and cut wrists but its been 8+ yrs since last time Mental Status Exam Mental Status Exam Patient Appearance: Appropriate Patient Orientation: Person, Place, Time and Situation Level of Consciousness: Awake Patient Behavior: Appropriate Mood Description: Depressed Affect Description: Depressed Patient Cognition Impaired: No Ability to Follow Directions: Good Speech Pattern: Clear Memory Description: Intact Hallucinations: None Delusions: Not Present Thought Process: Intact and Goal Oriented Thought Content: positive for Intact and positive for Goal Oriented Judgement: Good Assessment and Plan Assessment & Plan (1) Bipolar disorder, current episode mixed, moderate: Status: Acute Code(s): F31.62 - Bipolar disorder, current episode mixed, moderate Plan add wellbutrin xl 150mg in am for depression increase seroqule xr to 400mg at bedtime move lithium to all at night obtain blood work before next appt Medications: New bupropion HCl XL (Wellbutrin XL) 150 mg PO QAM 30 tabs 3RF lithium carbonate ER 600 mg (2 x 300 mg) PO BEDTIME 60 tabs 2RF quetiapine ER (Seroquel XR) 400 mg PO BEDTIME 30 tabs 3RF Refilled cholecalciferol (vitamin D3) 50 mcg PO DAILY 90 caps 3RF 90 days E55.9 - Vitamin D deficiency, unspecified quetiapine 300 mg PO BEDTIME 90 tabs 0RF 90 days F31.60 - Bipolar disorder, current episode mixed, unspecified Discontinued quetiapine ER (Seroquel XR) in addition to 300mg IR at bedtime Discontinued Reason: Doctor's Order 300 mg PO BEDTIME 30 tabs 2RF lithium carbonate Discontinued Reason: Doctor's Order 300 mg PO BID 180 caps 1RF Orders: Orders [facility] 01/29/24 F31.62 - Bipolar disorder, current episode mixed, moderate Counseling and coordination of Care Pt. Self Management counseling: Maintenance-social rhythm, Mod caffeine/ETOH intake, Nutrition education and improvement, Sleep hygiene, Behavior activation and Problem solving Medication management counseling: Effectiveness, Side effects, Dosing range, Duration, Drug interaction and Adherence Diagnosis and Prognosis Counseling: Accuracy of diagnosis, Prognosis over time, Impact of diagnosis on life functions, Impact of family relationship, Problematic behaviors secondary to diagnosis and Adequacy of current interventions Details: I spent 45 minutes reviewing the record, seeing the patient and documenting in the medical record. Counseling provided to the patient/caregiver as outlined below. Addressed patient/caregiver concerns regarding current medication regime including effective adherence. Addressed patient/caregiver concerns regarding diagnosis and prognosis including accuracy of diagnosis, prognosis over time, impact of diagnosis. Addressed patient/caregiver concerns regarding impact of recent stressors. [facility] Medical History GERD (gastroesophageal reflux disease) Vitamin D deficiency Low back pain Overweight (BMI 25.0-29.9) Urethral stricture Pure hypercholesterolemia Smoker Rash Bipolar disorder Positive NENO (antinuclear antibody) Surgical History History of colonoscopy History of cystoscopy (~12/22/18) History of mandibular surgery History of surgery on left wrist (~1997) Family History Father Medical history unknown Mother Medical history unknown Other Mental health problem Substance abuse Social History Housing: House Alcohol intake: current Alcohol intake frequency: holidays/special occasions only Patient Tobacco Use Status: Current everyday Tobacco user Tobacco use type: Cigarette Cigarettes Per Day: 3 Years Smoked: 15 e-Cigarette/Vaping Use: Never Used service: No Current occupational status: unemployed Cognitive needs: No Hearing needs: No Vision needs: Yes Social History: lives with mother nephew ; pt has supportive GF; he is not able to work due to symptoms Substance History: THC in past - now 2-3 times a a week small amounts; ETOH on weekend up to 4 beers; uses cocaine 1-2 times a month never used opiates, heroin, or pills. Trauma History: childhood Coding Level of Care Code Est Pt Level 5 (51601) Diagnoses Bipolar disorder, current episode mixed, moderate F31.62
== END 2024-01-29 15:29 | disposition home or self-care (01) ==
LOC: HO.HOP 15:01
PROVIDERS: PCP Internal Medicine; Visit Provider Clinical Nurse Specialist Psychiatric/Mental Health
DX: F31.62 Bipolar disorder, current episode mixed, moderate (principal)
CPT/HCPCS: 99215

== ENCOUNTER → 2024-01-29 15:01 | Outpatient (BNVA) | payer OTHER, SELFPAY | PROVIDERS: PCP Internal Medicine; Visit Provider Clinical Nurse Specialist Psychiatric/Mental Health | DX: F31.62 Bipolar disorder, current episode mixed, moderate (principal) | CPT/HCPCS: 99212 ==

== ENCOUNTER 2024-02-26 15:09 | Outpatient (AMB) | payer OTHER, SELFPAY ==
--- NOTE | 2024-02-26 15:14 | A.OFFPSYCH_ITS ---
Intake Intake Visit Reasons: f/u consultation Grazing Aide Required: No Allergies oxcarbazepine [Trileptal] Allergy (Intermediate, Verified 11/07/23 16:32) rash Medication List - Last Reconciled 02/26/24 by Micheline Mitchell APRN bupropion HCl XL (Wellbutrin XL) 150 mg PO QAM cholecalciferol (vitamin D3) 50 mcg PO DAILY 90 days fenofibrate 160 mg PO DAILY 90 days lithium carbonate ER 600 mg (2 x 300 mg) PO BEDTIME quetiapine 300 mg PO BEDTIME 90 days quetiapine ER (Seroquel XR) 400 mg PO BEDTIME HPI- Psychiatric Chief Complaint: f/u consultation HPI Narrative: worse mood and anxiety with wellbutrin; pt struggling with increased agitation; feeling hopeless at times; struggling with learning coping skills; doing couples therapy; hasn'yt gotten blood work yet duue to fear of needles. pt wants to try adding vraylar or latuda for bipolar depression Past Psychiatric History: multiple IPLOC last time was 8 years ago; [facility] and [facility] fro THC use in past and [facility] for psych. has made suicide attemtps in past OD on pills and cut wrists but its been 8+ yrs since last time Subjective Subjective Subjective Medication Compliance: Yes Review of Systems Medical Review of Systems: unchanged Mental Status Exam Mental Status Exam Patient Appearance: Well Grooomed and Appropriate Patient Orientation: Person, Place, Time and Situation Level of Consciousness: Awake and Appropriate Patient Behavior: Appropriate and Talkative Mood Description: Depressed and Anxious Affect Description: Depressed and Anxious Patient Cognition Impaired: No Ability to Follow Directions: Good Speech Pattern: Clear Memory Description: Intact Hallucinations: None Delusions: Not Present Thought Process: Intact and Goal Oriented Thought Content: positive for Intact and positive for Goal Oriented Judgement: Good Assessment and Plan Assessment & Plan (1) Bipolar disorder, current episode mixed, moderate: Status: Acute Code(s): F31.62 - Bipolar disorder, current episode mixed, moderate (2) PTSD (post-traumatic stress disorder): Status: Acute Code(s): F43.10 - Post-traumatic stress disorder, unspecified (3) Anxiety: Status: Acute Code(s): F41.9 - Anxiety disorder, unspecified Medications: New lurasidone (Latuda) must administer with food (at least 350 calories) 40 mg PO DAILY 30 tabs 2RF Refilled quetiapine ER (Seroquel XR) 400 mg PO BEDTIME 30 tabs 3RF lithium carbonate ER 600 mg (2 x 300 mg) PO BEDTIME 60 tabs 2RF quetiapine 300 mg PO BEDTIME 90 tabs 0RF 90 days F31.60 - Bipolar disorder, current episode mixed, unspecified Discontinued bupropion HCl XL (Wellbutrin XL) Discontinued Reason: Doctor's Order 150 mg PO QAM 30 tabs 3RF Orders: Orders Lipid Panel Today F31.62 - Bipolar disorder, current episode mixed, moderate Basic Metabolic Panel Today F31.62 - Bipolar disorder, current episode mixed, moderate [place] Today F31.62 - Bipolar disorder, current episode mixed, moderate TSH reflex Free T4 Today F31.62 - Bipolar disorder, current episode mixed, moderate Counseling and coordination of Care Pt. Self Management counseling: Maintenance-social rhythm, Mod caffeine/ETOH intake, Sleep hygiene, Behavior activation, General coping skills and Problem solving Medication management counseling: Effectiveness, Side effects, Dosing range, Duration, Drug interaction and Adherence Diagnosis and Prognosis Counseling: Accuracy of diagnosis, Prognosis over time, Impact of diagnosis on life functions, Impact of family relationship, Problematic behaviors secondary to diagnosis and Adequacy of current interventions Details: I spent 45 minutes reviewing the record, seeing the patient and documenting in the medical record. Counseling provided to the patient/caregiver as outlined below. Addressed patient/caregiver concerns regarding current medication regime including effective adherence. Addressed patient/caregiver concerns regarding diagnosis and prognosis including accuracy of diagnosis, prognosis over time, impact of diagnosis. Addressed patient/caregiver concerns regarding impact of recent stressors. [facility] Medical History GERD (gastroesophageal reflux disease) Vitamin D deficiency Low back pain Overweight (BMI 25.0-29.9) Urethral stricture Pure hypercholesterolemia Smoker Rash Bipolar disorder Positive NENO (antinuclear antibody) Surgical History History of colonoscopy History of cystoscopy (~12/22/18) History of mandibular surgery History of surgery on left wrist (~1997) Family History Father Medical history unknown Mother Medical history unknown Other Mental health problem Substance abuse Social History Housing: House Alcohol intake: current Alcohol intake frequency: holidays/special occasions only Patient Tobacco Use Status: Current everyday Tobacco user Tobacco use type: Cigarette Cigarettes Per Day: 3 Years Smoked: 15 e-Cigarette/Vaping Use: Never Used service: No Current occupational status: unemployed Cognitive needs: No Hearing needs: No Vision needs: Yes Social History: lives with mother nephew ; pt has supportive GF; he is not able to work due to symptoms Substance History: THC in past - now 2-3 times a a week small amounts; ETOH on weekend up to 4 beers; uses cocaine 1-2 times a month never used opiates, heroin, or pills. Trauma History: childhood Coding Level of Care Code Est Pt Level 5 (23347) Diagnoses Bipolar disorder, current episode mixed, moderate F31.62 PTSD (post-traumatic stress disorder) F43.10 Anxiety F41.9
== END 2024-02-26 15:31 | disposition home or self-care (01) ==
LOC: HO.HOP 15:09
PROVIDERS: PCP Internal Medicine; Visit Provider Clinical Nurse Specialist Psychiatric/Mental Health
DX: F31.62 Bipolar disorder, current episode mixed, moderate (principal); F43.10 Post-traumatic stress disorder, unspecified; F41.9 Anxiety disorder, unspecified
CPT/HCPCS: 99215

== ENCOUNTER → 2024-02-26 15:09 | Outpatient (BNVA) | payer OTHER, SELFPAY | PROVIDERS: PCP Internal Medicine; Visit Provider Clinical Nurse Specialist Psychiatric/Mental Health | DX: F31.62 Bipolar disorder, current episode mixed, moderate (principal); F43.10 Post-traumatic stress disorder, unspecified; F41.9 Anxiety disorder, unspecified | CPT/HCPCS: 99212 ==

== ENCOUNTER 2024-04-01 13:08 | Outpatient (REF) | payer OTHER, SELFPAY ==
[2024-04-01 13:19] LABS: MANUAL DIFF FLAG NO
[2024-04-01 15:38] LABS: Basophils Absolute Auto 0.1 X10*3/uL (0.0-0.2); Basophils Percent Auto 1.1 % (0-2); Eosinophils Absolute Auto 0.2 X10*3/uL (0.0-0.4); Eosinophils Percent Auto 2.1 % (0-4); Hematocrit 44.4 % (42.0-52.0); Hemoglobin 14.8 g/dl (14.0-18.0); Imm Gran Abs Auto 0.04 X10*3/uL (0.00-0.03); Imm Gran Pct Auto 0.5 % (0.0-0.4); Lymphocytes Absolute Auto 1.8 X10*3/uL (1.2-4.9); Lymphocytes Percent Auto 23.7 % (20-40); Mean Corpuscular HGB Conc 33.3 g/dl (31.0-36.0); Mean Corpuscular Hemoglobin 31.4 pg (27.0-33.0); Mean Corpuscular Volume 94.3 fL (80.0-98.0); Mean Platelet Volume 9.2 fL (9.4-12.4); Monocytes Absolute Auto 0.6 X10*3/uL (0.1-1.2); Monocytes Percent Auto 7.6 % (2-11); Neutrophils Absolute Auto 4.9 x10*3/uL (2.0-8.3); Platelet Count 338 X10*3/uL (160-400); Red Blood Count 4.71 X10*6/uL (4.60-5.80); Red Cell Distribution Width 13.5 % (11.0-16.0); White Blood Count 7.5 X10*3/uL (4.8-10.8)
[2024-04-01 17:36] LABS: Lithium 0.29 mmol/L (0.60-1.20)
[2024-04-01 18:00] LABS: Albumin Level 4.5 g/dL (3.5-5.0); Anion Gap 14 (12-20); Aspartate Amino Transferase 22 U/L (5-37); Bilirubin Total 0.4 mg/dL (0.0-1.0); Blood Urea Nitrogen 10 mg/dL (9-16); Calcium 8.8 mg/dL (8.4-10.2); Carbon Dioxide 27 mmol/L (22-29); Chloride 104 mmol/L (96-108); Cholesterol 280 mg/dL (<200); Estimated Glomerular Filt Rate > 60; Glucose Fasting 104 mg/dL (60-99); HDL Cholesterol 54 mg/dL (>40); LDL Cholesterol Calculated 162 mg/dL (<100); Potassium 4.5 mmol/L (3.3-5.1); Sodium 140 mmol/L (135-145); Total Protein 7.6 g/dL (6.5-8.0); Triglycerides 323 mg/dL (<150)
[2024-04-01 19:32] LABS: Alanine Aminotransferase 28 U/L (0-40); Alkaline Phosphatase 94 U/L (39-117)
[2024-04-01 19:53] LABS: TSH reflex Free T4 1.63 uIU/mL (0.32-4.0)
== END 2024-04-01 13:09 | disposition home or self-care (01) ==
LOC: HO.LAB 13:08
PROVIDERS: Clinical Nurse Specialist Psychiatric/Mental Health; PCP Internal Medicine; Visit Provider Internal Medicine
DX: E78.00 Pure hypercholesterolemia, unspecified (principal); K21.9 Gastro-esophageal reflux disease without esophagitis; E55.9 Vitamin D deficiency, unspecified; R39.11 Hesitancy of micturition; M54.50 Low back pain, unspecified; F31.62 Bipolar disorder, current episode mixed, moderate; F43.10 Post-traumatic stress disorder, unspecified; E66.3 Overweight; D64.9 Anemia, unspecified
CPT/HCPCS: 36415; 80053; 80061; 80178; 82306; 84443; 85025; 96127; 99212

== ENCOUNTER 2024-04-01 13:24 | Outpatient (AMB) | payer OTHER, SELFPAY ==
--- NOTE | 2024-04-01 13:37 | A.OFFPSYCH_ITS ---
Intake Intake Visit Reasons: f/u consultation Retail Account Representative Required: No Allergies oxcarbazepine [Trileptal] Allergy (Intermediate, Verified 11/07/23 16:32) rash Medication List - Last Reconciled 04/01/24 by Micheline Mitchell APRN cholecalciferol (vitamin D3) 50 mcg PO DAILY 90 days fenofibrate 160 mg PO DAILY 90 days lithium carbonate ER 600 mg (2 x 300 mg) PO BEDTIME lurasidone (Latuda) 40 mg PO DAILY quetiapine 300 mg PO BEDTIME 90 days quetiapine ER (Seroquel XR) 400 mg PO BEDTIME HPI- Psychiatric Chief Complaint: f/u consultation HPI Narrative: Pt reports much improvement; His mood is improved; he is less anxious and less agitated; he is less easily frustrated and reactive. His PHQ9 has gone from 18 last month to 14 today and his GAD7 has gone from 19 in to 12 today. He got his labs drawn today; results are pending; he feel hopeful about future; no side effects from meds; he will continue with current meds and return in one month. if he continues to do well he will return back to PCP for continued management of medications. Past Psychiatric History: multiple IPLOC last time was 8 years ago; [facility] and [facility] fro THC use in past and [facility] for psych. has made suicide attemtps in past OD on pills and cut wrists but its been 8+ yrs since last time Subjective Subjective Subjective Medication Compliance: Yes Side effects from medications: No Review of Systems Medical Review of Systems: unchanged Review of Systems Constitutional: Reports no additional complaints Eyes: Reports no additional complaints Reports no additional complaints Cardiovascular: Reports no additional complaints Respiratory: Reports no additional complaints Gastrointestinal: Reports no additional complaints Genitourinary: Reports no additional complaints Musculoskeletal: Reports no additional complaints Comments: no tremor Skin/Breast: Reports system reviewed and no additional complaints, except as documented Reports no additional complaints Psychiatric: Reports no additional complaints Endocrine: Reports no additional complaints Hematologic/Lymphatic: Reports no additional complaints Allergic/Immunologic: Reports no additional complaints Mental Status Exam Mental Status Exam Patient Appearance: Appropriate Patient Orientation: Person, Place, Time and Situation Level of Consciousness: Awake and Appropriate Patient Behavior: Appropriate and Cooperative Mood Description: Calm and Happy Affect Description: Calm and Happy Patient Cognition Impaired: No Ability to Follow Directions: Good Speech Pattern: Clear and Appropriate Memory Description: Intact Hallucinations: None Delusions: Not Present Thought Process: Intact and Goal Oriented Thought Content: positive for Intact and positive for Goal Oriented Judgement: Good Assessment and Plan Assessment & Plan (1) PTSD (post-traumatic stress disorder): Status: Acute Code(s): F43.10 - Post-traumatic stress disorder, unspecified (2) Bipolar disorder, current episode mixed, moderate: Status: Acute Code(s): F31.62 - Bipolar disorder, current episode mixed, moderate Plan Medications: Refilled lurasidone (Latuda) must administer with food (at least 350 calories) 40 mg PO DAILY 30 tabs 2RF lithium carbonate ER 600 mg (2 x 300 mg) PO BEDTIME 60 tabs 2RF quetiapine 300 mg PO BEDTIME 90 tabs 0RF 90 days F31.60 - Bipolar disorder, current episode mixed, unspecified quetiapine ER (Seroquel XR) 400 mg PO BEDTIME 30 tabs 3RF Counseling and coordination of Care Pt. Self Management counseling: Mod caffeine/ETOH intake and Sleep hygiene Medication management counseling: Effectiveness, Side effects, Dosing range, Duration, Drug interaction and Adherence Diagnosis and Prognosis Counseling: Accuracy of diagnosis, Prognosis over time, Impact of diagnosis on life functions, Impact of family relationship, Problematic behaviors secondary to diagnosis and Adequacy of current interventions Details: I spent 45 minutes reviewing the record, seeing the patient and documenting in the medical record. Counseling provided to the patient/caregiver as outlined below. Addressed patient/caregiver concerns regarding current medication regime including effective adherence. Addressed patient/caregiver concerns regarding diagnosis and prognosis including accuracy of diagnosis, prognosis over time, impact of diagnosis. Addressed patient/caregiver concerns regarding impact of recent stressors. [facility] Medical History GERD (gastroesophageal reflux disease) Vitamin D deficiency Low back pain Overweight (BMI 25.0-29.9) Urethral stricture Pure hypercholesterolemia Smoker Rash Bipolar disorder Positive NENO (antinuclear antibody) Surgical History History of colonoscopy History of cystoscopy (~12/22/18) History of mandibular surgery History of surgery on left wrist (~1997) Family History Father Medical history unknown Mother Medical history unknown Other Mental health problem Substance abuse Social History Housing: House Alcohol intake: current Alcohol intake frequency: holidays/special occasions only Patient Tobacco Use Status: Current everyday Tobacco user Tobacco use type: Cigarette Cigarettes Per Day: 3 Years Smoked: 15 e-Cigarette/Vaping Use: Never Used service: No Current occupational status: unemployed Cognitive needs: No Hearing needs: No Vision needs: Yes Social History: lives with mother nephew ; pt has supportive GF; he is not able to work due to symptoms Substance History: THC in past - now 2-3 times a a week small amounts; ETOH on weekend up to 4 beers; uses cocaine 1-2 times a month never used opiates, heroin, or pills. Trauma History: childhood Coding Level of Care Code Est Pt Level 5 (93359) Diagnoses PTSD (post-traumatic stress disorder) F43.10 Bipolar disorder, current episode mixed, moderate F31.62
== END 2024-04-01 14:20 | disposition home or self-care (01) ==
LOC: HO.HOP 13:24
PROVIDERS: PCP Internal Medicine; Visit Provider Clinical Nurse Specialist Psychiatric/Mental Health
DX: F43.10 Post-traumatic stress disorder, unspecified (principal); F31.62 Bipolar disorder, current episode mixed, moderate
CPT/HCPCS: 99215

== ENCOUNTER 2024-04-01 15:25 | Outpatient (AMB) | payer OTHER, SELFPAY ==
--- NOTE | 2024-04-01 15:26 | A.OFFPC_ITS ---
Vital Signs 04/01/24 15:27 Height 5 ft 7 in Weight 170 lb 6 oz BMI 26.7 BP 110/80 Blood Pressure Location Lt brachial Position Sitting Pulse 99 Pulse Source Pulse Oximeter Pulse Oximetry (%) 98 Oxygen Delivery Method Room Air Intake Visit Reasons: 8 mth f/u meds Manager Provider Relations Required: No Accompanied by: Self / Same As Patient Allergies oxcarbazepine [Trileptal] Allergy (Intermediate, Verified 04/01/24 15:55) rash Medication List - Last Reconciled 04/01/24 by Manuel Morgan MD cholecalciferol (vitamin D3) 50 mcg PO DAILY 90 days fenofibrate 160 mg PO DAILY 90 days lithium carbonate ER 600 mg (2 x 300 mg) PO BEDTIME lurasidone (Latuda) 40 mg PO DAILY quetiapine 300 mg PO BEDTIME 90 days quetiapine ER (Seroquel XR) 400 mg PO BEDTIME Tobacco use date assessed: 04/01/24 Dental Screening Dental Screen Date: 04/01/24 Did you have a dental visit in the last 12 months?: Yes Did you have a dental problem in the last 6 months where you did not have access to dental care?: No Was dental information given to patient?: Patient has dentist HPI 8 mth f/u meds HPI Details Patient comes in today for his follow-up visit States that he currently feels okay States that he has been following up with our outpatient psychiatry clinic regularly and recently had his medications changed He is now on Latuda 40 mg QD, [place] ER 600 mg Q HS and Quetiapine ER 400 mg + Quetiapine 300 mg (700 mg total dose) Q HS and that he is doing well on his current medications and reports that his anxiety and agitation have been well controlled States that he still wakes up frequently at around 04:00 in the morning for no particular reasons He denies experiencing any nightmares He denies any headaches or dizziness Denies any chest pains, no shortness of breath No nausea/vomiting, no abdominal pain No change in bowel habits noted He had his follow-up labs done earlier today - to discuss his results [facility], [facility] Medical History GERD (gastroesophageal reflux disease) Vitamin D deficiency Low back pain Overweight (BMI 25.0-29.9) Urethral stricture Pure hypercholesterolemia Smoker Rash Bipolar disorder Positive NENO (antinuclear antibody) Surgical History History of colonoscopy History of cystoscopy (~12/22/18) History of mandibular surgery History of surgery on left wrist (~1997) Family History Father Medical history unknown Mother Medical history unknown Other Mental health problem Substance abuse Social History Housing: House Alcohol intake: current Alcohol intake frequency: holidays/special occasions only Patient Tobacco Use Status: Current everyday Tobacco user Tobacco use type: Cigarette Cigarettes Per Day: 3 Years Smoked: 15 e-Cigarette/Vaping Use: Never Used service: No Current occupational status: unemployed Cognitive needs: No Hearing needs: No Vision needs: Yes Questionnaire PHQ-9 Over the last 2 weeks, how often have you been bothered by any of the following problems? 1. Little interest or pleasure in doing things: several days 2. Feeling down, depressed, or hopeless: more than half the days 3. Trouble falling or staying asleep, or sleeping too much: nearly every day 4. Feeling tired or having little energy: several days 5. Poor appetite or overeating: several days 6. Feeling bad about yourself - or that you are a failure or have let yourself or your family down: not at all 7. Trouble concentrating on things, such as reading the newspaper or watching television: not at all 8. Moving or speaking so slowly that other people could have noticed. Or the opposite - being so fidgety or restless that you have been moving around a lot more than usual: not at all 9. Thoughts that you would be better off or of hurting yourself in some way: not at all Total score: 8 Depression Screening Interpretation: Positive Depression Screening Follow-up: Existing condition and In treatment Depression Screening Done: Yes 12954 - PHQ-9 Billing: Yes Source: Developed by Drs. Oswald Domínguez, Valerie Hendricks, Alexis Riley and colleagues, with an educational katerine from [employer]. Thrive Questionnaire Date Thrive assessed: 04/01/24 I am a: Patient What is your living situation today?: I have a steady place to live Within the past 12 months, did the food you bought not last and you didn't have the money to get more?: Never true Within the past 12 months, did you worry whether your food would run out before you got money to buy more?: Never true Do you have trouble paying for medicines?: No Do you have trouble getting transportation to medical appointments?: No Do you have trouble paying your heating and electricity bill?: No Do you have trouble taking care of your child, family member or friend?: No Do you have trouble with day-to-day activities such as bathing, preparing meals, shopping, managing finances, etc.?: No Are you currently unemployed and looking for a job?: No Are you interested in more education?: No Please select the resources that you would like help with: None Currently or been in a relationship where the following occur: No concerns reported THRIVE Score: 0 AUDIT C Alcohol Use Questionnaire (AUDIT-C) 1. How often do you have a drink containing alcohol?: Monthly or less 2. How many drinks containing alcohol do you have on a typical day when you are drinking?: 1 or 2 3. How often do you have six or more drinks on one occasion?: Never Total Score: 1 Score Reviewed/Action Taken: Yes MIKE-7 AMB Questionnaire MIKE-7 Date MIKE - 7 assessed: 04/01/24 Feeling nervous, anxious, or on edge: 0 = Not at all Not being able to stop or control worryin = Not at all Worrying too much about different things: 0 = Not at all Trouble relaxin = Not at all Being so restless that it is hard to sit still: 0 = Not at all Becoming easily annoyed or irritable: 0 = Not at all Feeling afraid as if something awful might happen: 0 = Not at all Total MIKE-7 score (0-4 normal; 5-9 mild; 10-14 moderate; 15-21 severe): 0 Source: Developed by Drs. Oswald Domínguez, Valerie Hendricks, Alexis Riley and colleagues, with an educational katerine from [employer]. Review of Systems Const Denies chills, Denies difficulty sleeping, Denies fatigue, Denies fever(s) and Denies headache(s) ENT Denies dysphagia, Denies dizziness, Denies otalgia, Denies headache(s), Denies neck pain, Denies odynophagia and Denies sore throat Card Denies chest pain, Denies palpitations and Denies dyspnea Resp Denies chest congestion, Denies cough and Denies dyspnea GI Denies abdominal pain, Denies constipation, Denies dysphagia, Denies heartburn, Denies diarrhea, Denies nausea, Denies odynophagia and Denies vomiting Denies difficulty urinating, Denies dysuria, Denies nocturia and Denies urinary frequency Musc Reports back pain (on and off, over the left side behind the hip), Reports arthralgias (in both hands, on and off) and Denies neck pain Skin/Breast Denies rash Neuro Denies dizziness and Denies headache(s) Endo Denies fatigue and Denies palpitations Physical exam (Primary Care) Vital Signs: Last Vital Signs Pulse 99 04/01/24 15:27 BP 110/80 04/01/24 15:27 Pulse Ox 98 04/01/24 15:27 Oxygen Delivery Method Room Air 04/01/24 15:27 BMI result Body Mass Index 26.7 Tobacco/Smoking Status: Tobacco use Status Tobacco use date assessed 04/01/24 04/01/24 15:31 Patient Tobacco Use Status Current everyday Tobacco 04/01/24 15:31 Tobacco use type Cigarette 04/01/24 15:31 e-Cigarette/Vaping Use Never Used 04/01/24 15:31 PHQ-9: PHQ-9 Score PHQ-9: Total score 8 04/01/24 15:59 Depression Screening Interpretation: Positive Depression Screening Follow-up: Existing condition and In treatment Thrive Assessment: Date of Thrive Assessment Date Thrive assessed 04/01/24 04/01/24 15:31 Currently or been in a relationship where the following occur: No concerns reported Const General: no acute distress and alert HENMT Ears: TM's normal bilaterally and EAC's normal Throat: Yes posterior oropharynx normal and Yes tonsils normal (no TP congestion) Neck Neck: Yes supple and No lymphadenopathy Thyroid: Thyroid normal Resp Auscultation: clear to auscultation bilaterally, no rales and no wheezes Cardio Rate: regular rate Rhythm: regular rhythm Heart sounds: no murmurs GI Palpation (GI): Soft to palpation and nontender Auscultation: normal bowel sounds General: Yes no CVA tenderness Back/Spine/Pelvis Back: no CVA tenderness Thoracic/Lumbar Spine: lumbar spinal tenderness (mild) Skin Rashes: no rashes Extrem General: Yes no clubbing, cyanosis or edema Left lower extremity: knee Details: tenderness (mild) Location: of the medial joint line; no swelling Results Reviewed Results Reviewed: Laboratory Tests 04/24/23 04/01/24 14:53 13:17 WBC 8.4 7.5 Hgb 14.9 14.8 Hct 44.2 44.4 Plt Count 305 338 Sodium 140 Potassium 4.5 Creatinine 1.16 Estimated GFR > 60 Fasting Glucose 104 H Calcium 8.8 AST 22 ALT 28 Triglycerides 323 H Cholesterol 280 H LDL Cholesterol, Calc 162 H HDL Cholesterol 54 25-OH Vitamin D Total 29.0 L TSH 1.63 [place] 0.29 L Coding Level of Care Code Est Pt Level 4 (15205) Diagnoses Pure hypercholesterolemia E78.00 Gastroesophageal reflux disease without esophagitis K21.9 Esophagitis presence: without esophagitis Vitamin D deficiency E55.9 Urinary hesitancy R39.11 Left-sided low back pain without sciatica, unspecified chronicity M54.50 Chronicity: unspecified Sciatica presence: without sciatica Bipolar disorder, current episode mixed, moderate F31.62 PTSD (post-traumatic stress disorder) F43.10 Overweight (BMI 25.0-29.9) E66.3 Additional Codes PHQ-9 - 40990 - PHQ-9 Billing: Yes ([id number]) Assessment & Plan Assessment & Plan (1) Pure hypercholesterolemia: Code(s): E78.00 - Pure hypercholesterolemia, unspecified Category: Medical Plan: Results of his labs done earlier this morning reviewed and discussed with patient -has patient that his serum triglyceride levels have improved slightly from previous but is still elevated His total cholesterol and LDL cholesterol are also both still elevated, with total cholesterol at 280 mg/dL and LDL cholesterol at 162 mg/dL Reinforced low-cholesterol diet Continue Fenofibrate 160 mg QD We will recheck his labs and fasting lipids in 3 months for follow-up and if his LDL cholesterol is still elevated at the time, would also consider starting him additionally on statin Rx to help lower his LDL cholesterol (2) GERD (gastroesophageal reflux disease): Code(s): K21.9 - Gastro-esophageal reflux disease without esophagitis Category: Medical Qualifiers: Esophagitis presence: without esophagitis Qualified Code(s): K21.9 - Gastro-esophageal reflux disease without esophagitis Plan: Dietary restrictions reinforced He used to take Omeprazole 20 mg QD but has not had it in a while - states that he feels okay without the Rx at this time (3) Vitamin D deficiency: Code(s): E55.9 - Vitamin D deficiency, unspecified Category: Medical Plan: Patient is advised that his vitamin-D level is still low on his recent labs Will start him back on vitamin D3 2000 units QD (4) Urinary hesitancy: Comment: (+) Hx of urethral stricture, s/p dilatation Code(s): R39.11 - Hesitancy of micturition Category: Medical Plan: Patient's urinary symptoms have improved significantly with Tamsulosin but he is currently no longer taking the medication Follow up with urology as scheduled (5) Left low back pain: Code(s): M54.50 - Low back pain, unspecified Category: Medical Qualifiers: Chronicity: unspecified Sciatica presence: without sciatica Qualified Code(s): M54.50 - Low back pain, unspecified Plan: Reinforced activity and weight-lifting restrictions to avoid aggravating his lower back symptoms X-rays of the left hip and SI joint done back in April 2023 came out normal, with only sacralization of the right L5 transverse process seen Lumbar spine x-rays done back in 2020 also came out unremarkable Can consider referring him to physical therapy if his left lower back pain continues to persist or get worse (6) Bipolar disorder, current episode mixed, moderate: Code(s): F31.62 - Bipolar disorder, current episode mixed, moderate Category: Medical Plan: Continue [place] ER 600 mg Q HS, Latuda 40 mg QD and Quetiapine ER 400 mg + Quetiapine IR 300 mg Q HS Follow up with psychiatry as scheduled (7) PTSD (post-traumatic stress disorder): Code(s): F43.10 - Post-traumatic stress disorder, unspecified Category: Medical Plan: Patient states that his symptoms, including anxiety, are well-controlled on his current Rx Follow up with psychiatry as scheduled (8) Overweight (BMI 25.0-29.9): Code(s): E66.3 - Overweight Category: Medical Plan: Reinforced diet/exercise as tolerated/lose weight Plan Follow up in 3 months Orders: Orders TSH reflex Free T4 06/22/24 E78.00 - Pure hypercholesterolemia, unspecified Complete Blood Count Auto Diff 06/22/24 D64.9 - Anemia, unspecified Comprehensive [place]. Panel Fast 06/22/24 E78.00 - Pure hypercholesterolemia, unspecified Lipid Panel 06/22/24 E78.00 - Pure hypercholesterolemia, unspecified UA CC w/rflx Micro + Cult 06/22/24 R30.0 - Dysuria Vitamin D 25-OH Total 06/22/24 E55.9 - Vitamin D deficiency, unspecified Medications: New cholecalciferol (vitamin D3) 50 mcg PO DAILY 90 days 90 caps 3RF E55.9 - Vitamin D deficiency, unspecified
[2024-04-01 15:27] VITALS: BP 110/80; PULSE 99; O2SAT 98; BMI 26.7
== END 2024-04-01 16:06 | disposition home or self-care (01) ==
PROVIDERS: PCP Internal Medicine; Visit Provider Internal Medicine
DX: E78.00 Pure hypercholesterolemia, unspecified (principal); K21.9 Gastro-esophageal reflux disease without esophagitis; F31.62 Bipolar disorder, current episode mixed, moderate; E55.9 Vitamin D deficiency, unspecified; R39.11 Hesitancy of micturition; M54.50 Low back pain, unspecified; F43.10 Post-traumatic stress disorder, unspecified; E66.3 Overweight

== ENCOUNTER 2024-05-13 13:01 | Outpatient (AMB) | payer OTHER, SELFPAY ==
--- NOTE | 2024-05-13 13:06 | A.OFFPSYCH_ITS ---
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 Allergies oxcarbazepine [Trileptal] Allergy (Intermediate, Verified 04/01/24 15:55) rash Medication List - Last Reconciled 05/13/24 by Micheline Mitchell APRN cholecalciferol (vitamin D3) 50 mcg PO DAILY 90 days fenofibrate 160 mg PO DAILY 90 days lithium carbonate ER 600 mg (2 x 300 mg) PO BEDTIME lurasidone (Latuda) 40 mg PO DAILY quetiapine 300 mg PO BEDTIME 90 days quetiapine ER (Seroquel XR) 400 mg PO BEDTIME HPI- Psychiatric Chief Complaint: f/u consultation HPI Narrative: Pt reports much improvement; mood improved; reports anger and agitaton is gone; he continues to struggle with anxiety and depression at times but feel his medication regimen works well; He reports he needs to work on consistently taking it; he misses a dose once a week approximately. He had blood work doen but lithum level was drawn greater than 12 hours later at approximately 16 hours post dose. No side effects reported. No SI or HI. He did not start cholesterol medication yet- we discussed and he agrees to start right away. Past Psychiatric History: multiple IPLOC last time was 8 years ago; [facility] and [facility] fro THC use in past and [facility] for psych. has made suicide attemtps in past OD on pills and cut wrists but its been 8+ yrs since last time Subjective Subjective Subjective Medication Compliance: Yes Side effects from medications: No Review of Systems Medical Review of Systems: unchanged Mental Status Exam Mental Status Exam Patient Appearance: Well Grooomed and Appropriate Patient Orientation: Person, Place, Time and Situation Level of Consciousness: Awake, Appropriate and Alert Patient Behavior: Anxious Mood Description: Anxious Affect Description: Anxious Patient Cognition Impaired: No Ability to Follow Directions: Good Speech Pattern: Clear and Coherent Memory Description: Intact Hallucinations: None Delusions: Not Present Thought Process: Intact and Goal Oriented Thought Content: positive for Intact and positive for Goal Oriented Judgement: Good Results Reviewed Results Reviewed: reviewed lab work CMP, CBC and lithium level Assessment and Plan Assessment & Plan (1) PTSD (post-traumatic stress disorder): Status: Acute Code(s): F43.10 - Post-traumatic stress disorder, unspecified (2) Bipolar disorder, current episode mixed, moderate: Status: Acute Code(s): F31.62 - Bipolar disorder, current episode mixed, moderate Plan continuemedications as below. redo lithium level pt will follow up with PCP for medications for now but ca return any time if status changes. Medications: Refilled quetiapine 300 mg PO BEDTIME 90 tabs 0RF 90 days F31.60 - Bipolar disorder, current episode mixed, unspecified lithium carbonate ER 600 mg (2 x 300 mg) PO BEDTIME 60 tabs 2RF lurasidone (Latuda) must administer with food (at least 350 calories) 40 mg PO DAILY 30 tabs 2RF quetiapine ER (Seroquel XR) 400 mg PO BEDTIME 30 tabs 3RF Orders: Orders [place] Today F31.62 - Bipolar disorder, current episode mixed, moderate Counseling and coordination of Care Pt. Self Management counseling: Maintenance-social rhythm, Med illness tx adherence, Nutrition education and improvement, Sleep hygiene and General coping skills Medication management counseling: Effectiveness, Side effects, Dosing range, Duration, Drug interaction and Adherence Diagnosis and Prognosis Counseling: Accuracy of diagnosis, Prognosis over time, Impact of diagnosis on life functions, Impact of family relationship, Problematic behaviors secondary to diagnosis and Adequacy of current interventions Details: I spent 40 minutes reviewing the record, seeing the patient and documenting in the medical record. Counseling provided to the patient/caregiver as outlined below. Addressed patient/caregiver concerns regarding current medication regime including effective adherence. Addressed patient/caregiver concerns regarding diagnosis and prognosis including accuracy of diagnosis, prognosis over time, impact of diagnosis. Addressed patient/caregiver concerns regarding impact of recent stressors. FORMERLY [facility] Medical History GERD (gastroesophageal reflux disease) Vitamin D deficiency Low back pain Overweight (BMI 25.0-29.9) Urethral stricture Pure hypercholesterolemia Smoker Rash Bipolar disorder Positive NENO (antinuclear antibody) Surgical History History of colonoscopy History of cystoscopy (~12/22/18) History of mandibular surgery History of surgery on left wrist (~1997) Family History Father Medical history unknown Mother Medical history unknown Other Mental health problem Substance abuse Social History (Reviewed 04/01/24 @ 15:27 by MAVIS Gonzalez Housing: House Alcohol intake: current Alcohol intake frequency: holidays/special occasions only Patient Tobacco Use Status: Current everyday Tobacco user Tobacco use type: Cigarette Cigarettes Per Day: 3 Years Smoked: 15 e-Cigarette/Vaping Use: Never Used service: No Current occupational status: unemployed Cognitive needs: No Hearing needs: No Vision needs: Yes Social History: lives with mother nephew ; pt has supportive GF; he is not able to work due to symptoms Substance History: THC in past - now 2-3 times a a week small amounts; ETOH on weekend up to 4 beers; uses cocaine 1-2 times a month never used opiates, heroin, or pills. Trauma History: childhood Coding Level of Care Code Est Pt Level 4 (35735) Diagnoses PTSD (post-traumatic stress disorder) F43.10 Bipolar disorder, current episode mixed, moderate F31.62
--- OUTSIDE RECORDS SUMMARY | 2024-05-13 14:19 | XMS_ITS | Clinical Summary ---
Author Organization [facility] ity Address [address] [place] [address] Care Team Providers Care Fiber Optics Supervisor Name Role Phone Unavailable Primary Care Provider Unavailabl e Social History Tobacco Use Types Packs/Day Years Used Date Smoking Tobacco: Never Assessed Sex and Gender Information Value Date Recorded Sex Assigned at Not on file Gender Identity Not on file Sexual Orientation Not on file Plan of Treatment Health Maintenance Due Date Last Done Comments DTaP,Tdap,and Td Vaccines (1 - Tdap) 1993 Hepatitis B Vaccines (1 of 3 - 19+ 3-dose series) 1993 Cholesterol Screening (Lipid Panel) 10/31/2023 Colorectal Cancer Screening: Colonoscopy 10/31/2023 Depression Screening 10/31/2023 HIV Screening 10/31/2023 Hepatitis C Screening 10/31/2023 Social Influencers of Health Screening 10/31/2023 COVID-19 Vaccine (2023-2 5 season) 2023 Influenza Vaccine (#1) 2023 HIB Vaccines Aged Out No longer eligi ble based on patient's age to complete this topic HPV Vaccines Aged Out No longer eligi ble based on patient's age to complete this topic Hepatitis A Vaccines Aged Out No long er eligible based on patient's age to complete this topic IPV Vaccines Aged Out No longer eligi ble based on patient's age to complete this topic MMR Vaccines Aged Out No longer eligi ble based on patient's age to complete this topic Meningococcal ACWY Vaccine Aged Out N o longer eligible based on patient's age to complete this topic Pneumococcal Vaccine: Pediat rics (0 to 5 Years) and At-Risk Patients (6 to 64 Years) Aged Out No longer eligible b ased on patient's age to complete this topic RSV Immunization Patients Un reji 20 months Aged Out No longer eligible b ased on patient's age to complete this topic Varicella Vaccines Aged Out No longer eligible based on patient's age to complete this topic
== END 2024-05-13 13:22 | disposition home or self-care (01) ==
LOC: HO.HOP 13:01
PROVIDERS: PCP Internal Medicine; Visit Provider Clinical Nurse Specialist Psychiatric/Mental Health
DX: F43.10 Post-traumatic stress disorder, unspecified (principal); F31.62 Bipolar disorder, current episode mixed, moderate
CPT/HCPCS: 99214

== ENCOUNTER → 2024-05-13 13:01 | Outpatient (BNVA) | payer OTHER, SELFPAY | PROVIDERS: PCP Internal Medicine; Visit Provider Clinical Nurse Specialist Psychiatric/Mental Health | DX: F43.10 Post-traumatic stress disorder, unspecified (principal); F31.62 Bipolar disorder, current episode mixed, moderate | CPT/HCPCS: 99212 ==

== ENCOUNTER 2024-08-05 09:36 | Outpatient (AMB) | payer OTHER, SELFPAY ==
--- NOTE | 2024-08-05 09:56 | A.OFFPSYCH_ITS ---
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 His PHQ9=24 and his GAD7=20. He reports significant dperessionand low mood, feels hopeless and overwhelmed. he is irritable. he is anxious and owrries. He is not sleeping well. He reports SI but denies plan or intent; He is very anxious all the time; he reports medication compliance. He is not sleeping which he feels is making everything harder. We discussed contact 911 or [phone] if symptoms worsen and he needs higher level of care.he agrees to contact crisis if symptoms worsen. Past Psychiatric History: multiple IPLOC last time was 8 years ago; [facility] and [facility] for THC use in past and [facility] for psych. has made suicide attempts in past OD on pills and cut wrists but its been 8+ yrs since last time Subjective Subjective Subjective Medication Compliance: Yes Side effects from medications: No Review of Systems Medical Review of Systems: unchanged Mental Status Exam Mental Status Exam Patient Appearance: Appropriate Patient Orientation: Person, Place, Time and Situation Level of Consciousness: Awake and Appropriate Patient Behavior: Appropriate and Cooperative Mood Description: Depressed and Anxious Affect Description: Depressed and Anxious Patient Cognition Impaired: No Ability to Follow Directions: Good Speech Pattern: Perseverating, Spontaneous Speech, Rambling and Pressured Memory Description: Intact Hallucinations: None Perceptual Disturbances: Depersonalization Thought Process: Distracted and Rumination Thought Content: positive for Perseveration, positive for Preoccupation and p ositive for Suicidal Ideation (no plan and no intent) Judgement: Fair Assessment and Plan Assessment & Plan (1) PTSD (post-traumatic stress disorder): Status: Acute Code(s): F43.10 - Post-traumatic stress disorder, unspecified (2) Bipolar disorder, current episode mixed, moderate: Status: Acute Code(s): F31.62 - Bipolar disorder, current episode mixed, moderate (3) Anxiety: Status: Acute Code(s): F41.9 - Anxiety disorder, unspecified Plan continue lithium, seroquel and latuda. start guanfacine ER 1mg one in the am start trazodone 50mg at bedtime blood work ordered and pt to do in one week. return in 2-4 weeks for follow up Medications: New trazodone 50 mg PO BEDTIME PRN 30 tabs 0RF sleep guanfacine ER 1 mg PO DAILY 30 tabs 1RF Refilled lithium carbonate ER 600 mg (2 x 300 mg) PO BEDTIME 60 tabs 2RF Orders: Orders Complete Blood Count Auto Diff 08/05/24 Z79.899 - Other retirement (current) drug therapy Comprehensive Catherine. 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 Self Management counseling: Maintenance-social rhythm, Mod caffeine/ETOH intake, Nutrition education and improvement, Sleep hygiene, Behavior activation and General coping skills Medication management counseling: Effectiveness, Side effects, Dosing range, Duration, Drug interaction and Adherence Diagnosis and Prognosis Counseling: Accuracy of diagnosis, Prognosis over time, Impact of diagnosis on life functions, Impact of family relationship, Problematic behaviors secondary to diagnosis and Adequacy of current interventions Details: I spent 40 minutes reviewing the record, seeing the patient and documenting in the medical record. Counseling provided to the patient/caregiver as outlined below. Addressed patient/caregiver concerns regarding current medication regime including effective adherence. Addressed patient/caregiver concerns regarding diagnosis and prognosis including accuracy of diagnosis, prognosis over time, impact of diagnosis. Addressed patient/caregiver concerns regarding impact of recent stressors. [facility] Medical History (Updated 08/05/24 @ 10:18 by Micheline Mitchell APRN) GERD (gastroesophageal reflux disease) Low back pain Overweight (BMI 25.0-29.9) Urethral stricture Pure hypercholesterolemia Smoker Rash Bipolar disorder Positive NENO (antinuclear antibody) Surgical History History of colonoscopy History of cystoscopy (~12/22/18) History of mandibular surgery History of surgery on left wrist (~1997) Family History Father Medical history unknown Mother Medical history unknown Other Mental health problem Substance abuse Social History Housing: House Alcohol intake: current Alcohol intake frequency: holidays/special occasions only Patient Tobacco Use Status: Current everyday Tobacco user Tobacco use type: Cigarette Cigarettes Per Day: 3 Years Smoked: 15 e-Cigarette/Vaping Use: Never Used service: No Current occupational status: unemployed Cognitive needs: No Hearing needs: No Vision needs: Yes Social History: lives with mother nephew ; pt has supportive GF; he is not able to work due to symptoms Substance History: THC in past - now 2-3 times a a week small amounts; ETOH on weekend up to 4 beers; uses cocaine 1-2 times a month never used opiates, heroin, or pills. Trauma History: childhood Coding Level of Care Code Est Pt Level 4 (49597) Diagnoses PTSD (post-traumatic stress disorder) F43.10 Bipolar disorder, current episode mixed, moderate F31.62 Anxiety F41.9
--- OUTSIDE RECORDS SUMMARY | 2024-08-05 10:41 | XMS_ITS | Clinical Summary ---
Author Organization [facility] it Address [address] [place] [address] Care Team Providers Care Insurance Counsel Name Role Phone Unavailable Primary Care Provider Unavailabl e Social History Tobacco Use Types Packs/Day Years Used Date Smoking Tobacco: Never Assessed Sex and Gender Information Value Date Recorded Sex Assigned at Not on file Legal Sex Male 6:00 PM EST Gender Identity Not on file Sexual Orientation [...] Influencers of Health Screening 10/31/2023 COVID-19 Vaccine ( - 2023-2 5 season) 2023 Pneumococcal Vaccine: 50+ Ye ars (1 of 1 - PCV) 2024 Zoster Vaccines (1 of 2) 2024 Influenza Vaccine (Season Ended) 2024 HIB Vaccines Aged Out No longer eligi [...] patient's age to complete this topic Meningococcal B Vaccine Aged Out No l onger eligible based on patient's age to complete [...]
== END 2024-08-05 09:53 | disposition home or self-care (01) ==
LOC: HO.HOP 09:36
PROVIDERS: PCP Internal Medicine; Visit Provider Clinical Nurse Specialist Psychiatric/Mental Health
DX: F43.10 Post-traumatic stress disorder, unspecified (principal); F31.62 Bipolar disorder, current episode mixed, moderate; F41.9 Anxiety disorder, unspecified
CPT/HCPCS: 99214

== ENCOUNTER → 2024-08-05 09:36 | Outpatient (BNVA) | payer OTHER, SELFPAY | PROVIDERS: PCP Internal Medicine; Visit Provider Clinical Nurse Specialist Psychiatric/Mental Health | DX: F41.9 Anxiety disorder, unspecified (principal); F43.10 Post-traumatic stress disorder, unspecified; F31.62 Bipolar disorder, current episode mixed, moderate; E55.9 Vitamin D deficiency, unspecified; Z79.899 Other long term (current) drug therapy | CPT/HCPCS: 99212 ==

== ENCOUNTER 2024-12-26 09:20 | Outpatient (AMB) | payer OTHER, SELFPAY ==
--- NOTE | 2024-12-26 09:32 | MHC.OFFVIS ---
Vital Signs 12/26/24 09:33 Height 5 ft 7 in Weight 164 lb 8 oz BMI 25.8 BP 118/74 Blood Pressure Location Lt brachial Position Sitting Pulse 93 Pulse Oximetry (%) 98 Oxygen Delivery Method Room Air Intake Visit Reasons: left low quadrant pain Intake Note: Patient new consult for left low quadrant pain Patient cc: Chronic LLQ pain with abdominal cramps, testicular pain, rectal bleeding come and go and acid reflux. 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 Accompanied by: Self / Same As Patient Allergies oxcarbazepine (Trileptal) Allergy (Intermediate, Verified 12/26/24 09:32) rash Medication List - Last Reconciled 12/26/24 by Kailyn Grey CNP cholecalciferol (vitamin D3) 50 mcg PO DAILY 90 days fenofibrate 160 mg PO DAILY 90 days guanfacine ER 1 mg PO DAILY lithium carbonate 300 mg PO BID lurasidone (Latuda) 40 mg PO DAILY quetiapine 300 mg PO BEDTIME 90 days quetiapine ER (Seroquel XR) 400 mg PO BEDTIME trazodone 50 mg PO BEDTIME HPI HPI left low quadrant pain: Details: Patient is a 49-year-old male with PMH of bipolar, hyperlipidemia, nicotine dependence and GERD. Referred by PCP for further evaluation of abdominal pain. Patient presents with left lower quadrant abdominal cramping ongoing for a few months, described as constant and not associated with meals or bowel movements. The pain worsens with certain positions, particularly sitting and standing. Abdominal pain is a new symptom, alongside longstanding groin, hip, and lower back pain persisting for over a year, for which an unremarkable scrotal ultrasound was performed. The patient also endorses bright red blood per rectum, most often when wiping but occasionally seen in the toilet, which has occurred intermittently for the past ~20 years. He recalls a past hemorrhoidal episode three months ago but reports rectal bleeding even outside of hemorrhoid flares. Past colonoscopy 15?20 years ago (prompted by rectal bleeding) reportedly resulted in polypectomy or similar intervention. Bowel movements occur daily or every other day, typically soft, yellowish, and matching [place] stool type 7, though patient denies diarrhea and notes rare harder stools with increased odor. Baseline bowel pattern is chronic, with loose stools present entire adulthood. No associated nausea, vomiting, fever, or chills. Heartburn is also reported, previously daily but now improved to less than once a week with episodic use of calcium carbonate for relief; no dysphagia or regurgitation. Appetite and intake are chronically reduced; patient eats one solid meal daily, with frequent consumption of candy and soda, and minimal breakfast. Weight fluctuates (164.8 lb today, down from 170 lb ~9 months ago, but historically variable). Past psych hx includes bipolar disorder with periods of food intake variability during mood episodes. Notable comorbidities: HTN (episodic, not on continuous therapy), bipolar d/o (on Seroquel, Latuda, lithium, trazodone). Family hx remarkable for possible paternal colon cancer. No regular NSAID/steroid use. Social hx: -Diet: One solid meal/day (protein, rice/beans), high candy and soda intake (daily); rarely eats breakfast; appetite chronically low, small portions even historically -Alcohol: Occasional (weekends, [place] beer, low-moderate amounts) -Tobacco: Intermittent, 0?4 cigs/day (some days none) -Illicit Drugs: Cannabis, intermittent (not daily), lower recent use; previously heavy -Occupation: Unemployed, on disability; former route sales delivery driver; lives locally - family hx as below -denies personal hx of CA -denies significant cardiopulmonary history -awaken during prior colonoscopy, otherwise tolerated anesthesia in the past without difficulty. [facility] Medical History (Updated 12/26/24 @ 10:42 by Kailyn Grey CNP) Diarrhea GERD (gastroesophageal reflux disease) Low back pain Overweight (BMI 25.0-29.9) Urethral stricture Pure hypercholesterolemia Smoker Rash Bipolar disorder Positive NENO (antinuclear antibody) Surgical History History of colonoscopy History of cystoscopy (~12/22/18) History of mandibular surgery History of surgery on left wrist (~1997) Family History (Updated 12/26/24 @ 10:13 by Kailyn Grey CNP) Father Medical history unknown Cancer Mother Medical history unknown Other Mental health problem Substance abuse Social History Housing: House Alcohol intake: current Alcohol intake frequency: holidays/special occasions only Patient Tobacco Use Status: Current everyday Tobacco user Tobacco use type: Cigarette Cigarettes Per Day: 3 Years Smoked: 15 e-Cigarette/Vaping Use: Never Used [employer] service: No Current occupational status: unemployed Cognitive needs: No Hearing needs: No Vision needs: Yes Review of Systems Const Reports as per [facility] ENT Reports as per [facility] Card Reports as per [facility] Resp Reports as per [facility] GI Reports as per [facility] Reports as per [facility] Physical Exam Vital Signs: Last Vital Signs Pulse 93 12/26/24 09:33 BP 118/74 12/26/24 09:33 Pulse Ox 98 12/26/24 09:33 Oxygen Delivery Method Room Air 12/26/24 09:33 BMI result Body Mass Index 25.1 Const General: healthy appearing, no acute distress and well developed Nutritional Appearance: average body habitus Orientation/consciousness: patient oriented x3 HEENT Head: Yes normal to inspection, Yes normocephalic and Yes atraumatic Face and sinus: Yes normal facial exam Eyes General: appearance normal, both eyes and all related structures Neck Neck: Yes normal visual inspection Resp Effort & Inspection: normal respiratory effort, able to speak in complete sentences, no tracheal deviation and symmetric chest movement Cardio Jugular venous distension: no JVD GI Inspection: Yes normal to inspection and No distended Palpation (GI): Soft to palpation, not firm, nontender (no reproducible pain with exam maneuvers) and No hepatosplenomegaly present Auscultation: normoactive bowel sounds Rectal Exam - Male: Yes deferred (per pt request) Neuro General: patient oriented x3 Gait exam (Neuro): Normal gait present Psych Appearance: grossly normal Mental Status: mental status grossly normal Speech and movement: Normal speech and movement present Affect: normal affect Attitude: cooperative Thought process: Normal thought process present Thought content: Normal thought content present Insight: Good insight present (Psych) Judgement: Good judgement present (Psych) Assessment & Plan Assessment & Plan (1) Diarrhea: Code(s): R19.7 - Diarrhea, unspecified Category: Medical Qualifiers: Diarrhea type: unspecified type Qualified Code(s): R19.7 - Diarrhea, unspecified Plan: Chronic pattern, [place] 7, yellow, long-standing, worsened by high sugar/soda diet; r/o celiac, IBD, malabsorption, infxn. Additional Testing: Stool studies (pathogens, calprotectin, H. pylori, celiac serology, possible fat). Medication Management: None at present. Lifestyle Recommendations: -Decrease processed sugar, soda; gradually increase whole foods, fruits, veggies - aim for more formed stools ([place] 3?4). -3.5% wt loss since 03/2024, monitor weight Follow-Up: Review of labs/stool study results at F/U in ~8 wks. (2) GERD (gastroesophageal reflux disease): Code(s): K21.9 - Gastro-esophageal reflux disease without esophagitis Category: Medical Qualifiers: Esophagitis presence: without esophagitis Qualified Code(s): K21.9 - Gastro-esophageal reflux disease without esophagitis Plan: Episodic Sx, improved with diet moderation and calcium carbonate; prior daily Sx now rare; no dysphagia/regurgitation/red flags. Additional Testing: Upper endoscopy ordered (same session as colonoscopy) Medication Management: Continue prn antacids; PPI only if Sx recur/increase. Lifestyle Recommendations: Minimize candy/soda, especially bedtime; smaller meals; avoid triggers as able. Follow-Up: As above. Sx recurrence?consider PPI. (3) Rectal bleeding: Code(s): K62.5 - Hemorrhage of anus and rectum Category: Medical Plan: Long Hx of hematochezia, prior ? colon polyp/polypectomy ([facility], records not available), ? paternal colon CA, age onset unknown; intermittent external hemorrhoids, but bleeding not always correlated with flare. Additional Testing: - Colonoscopy planned -labs CBC (r/o anemia) -stool studies (calprotectin, pathogens). Medication Management: None initiated at present. Lifestyle Recommendations: Minimize straining, optimize fiber/hydration, minimize rectal irritation; improve diet. Follow-Up: return visit post-labs within 8 wks. (4) Left lower quadrant abdominal pain: Code(s): R10.32 - Left lower quadrant pain Category: Medical Plan: Pain positional, reproducible with certain movements, not elicited on palpation, unchanged by abdominal maneuvers; coexistent MSK/ pain. Additional Testing: None from GI. Recommend continued f/u with PCP/Urology/Ortho for MSK/ pain workup. Medication Management: None initiated. Lifestyle Recommendations: Monitor Sx; address as guided by outside specialists. Follow-Up: Non-GI, but flag if abdo pain pattern changes Plan Follow-up in 8 weeks or sooner as needed Time: I spent a total of 45 minutes on the date of encounter which includes: Preparing to see the patient (reviewed previous documentation, test results and medical history) Performing a medically appropriate exam and/or evaluation Ordering medications, tests, and procedures Documenting clinical information in the health record Orders: Orders Transglutaminase IgA Today R19.7 - Diarrhea, unspecified Calprotectin, Fecal Today R19.7 - Diarrhea, unspecified Fecal Fat Qualitative Today R19.7 - Diarrhea, unspecified GI Panel Today R19.7 - Diarrhea, unspecified Complete Blood Count Auto Diff Today K62.5 - Hemorrhage of anus and rectum C Reactive Protein Today R19.7 - Diarrhea, unspecified Ova and Parasite Today R19.7 - Diarrhea, unspecified H pylori Ag Stool Today K21.9 - Gastro-esophageal reflux disease without esophagitis, R19.7 - Diarrhea, unspecified Referrals GI Procedure Notification K21.9 - Gastro-esophageal reflux disease without esophagitis, K62.5 - Hemorrhage of anus and rectum, R19.7 - Diarrhea, unspecified, Z12.11 - Encounter for screening for malignant neoplasm of colon Coding Level of Care Code New Pt New Pt Level 4 (48488) Patient Type New Diagnoses Diarrhea, unspecified type R19.7 Diarrhea type: unspecified type Gastroesophageal reflux disease without esophagitis K21.9 Esophagitis presence: without esophagitis Rectal bleeding K62.5 Left lower quadrant abdominal pain R10.32
[2024-12-26 09:33] VITALS: BP 118/74; PULSE 93; O2SAT 98; BMI 25.8
--- OUTSIDE RECORDS SUMMARY | 2024-12-26 10:51 | XMS_ITS | Clinical Summary ---
Author Organization [facility] ity Address [address] [place] [address] Care Team Providers Care Conservation Engineer Name Role Phone Unavailable Primary Care Provider [...] Panel) 10/31/2023 Colorectal Cancer Screening: Colonoscopy 10/31/2023 HIV Screening 10/31/2023 Hepatitis C Screening 10/31/2023 Social Influencers of Health Screening 10/31/2023 Depression Screening 04/10/2024 Pneumococcal Vaccine: 50+ Ye ars (1 of 1 - PCV) 2024 Zoster Vaccines (1 of 2) 2024 COVID-19 Vaccine (1 - 2023-2 5 season) 2024 Influenza Vaccine (#1) 2024 RSV Immunization Adult Patie nts (1 - 1-dose 75+ series) 2049 HIB Vaccines Aged Out No longer eligi [...]
== END 2024-12-26 11:19 | disposition home or self-care (01) ==
LOC: HO.HGI 09:20
PROVIDERS: PCP Internal Medicine; Visit Provider Nurse Practitioner Family
DX: R19.7 Diarrhea, unspecified (principal); K21.9 Gastro-esophageal reflux disease without esophagitis; K62.5 Hemorrhage of anus and rectum; R10.32 Left lower quadrant pain
CPT/HCPCS: 99204

== ENCOUNTER → 2024-12-26 09:20 | Outpatient (BNVA) | payer OTHER, SELFPAY | PROVIDERS: PCP Internal Medicine; Visit Provider Nurse Practitioner Family | DX: K21.9 Gastro-esophageal reflux disease without esophagitis (principal); K62.5 Hemorrhage of anus and rectum; R19.7 Diarrhea, unspecified; R10.32 Left lower quadrant pain | CPT/HCPCS: 99202 ==

== ENCOUNTER 2025-01-27 15:41 | Outpatient (REF) | payer OTHER, SELFPAY ==
[2025-01-27 16:02] LABS: MANUAL DIFF FLAG NO
[2025-01-27 16:22] LABS: Hematocrit 43.4 % (42.0-52.0); Hemoglobin 14.6 g/dl (14.0-18.0); Imm Gran Abs Auto 0.05 X10*3/uL (0.00-0.03); Imm Gran Pct Auto 0.5 % (0.0-0.4); Lymphocytes Absolute Auto 1.7 X10*3/uL (1.2-4.9); Mean Corpuscular HGB Conc 33.6 g/dl (31.0-36.0); Mean Corpuscular Hemoglobin 31.7 pg (27.0-33.0); Mean Corpuscular Volume 94.3 fL (80.0-98.0); NRBC Abs Auto 0.000 X10*3/uL (0.0-0.012); NRBC Pct Auto 0.0 /100WBC (0.0-0.2); Platelet Count 284 X10*3/uL (160-400); Red Blood Count 4.60 X10*6/uL (4.60-5.80); White Blood Count 9.6 X10*3/uL (4.8-10.8)
== END 2025-01-27 15:42 | disposition home or self-care (01) ==
LOC: HO.LAB 15:41
PROVIDERS: PCP Internal Medicine; Visit Provider Nurse Practitioner Family
DX: K62.5 Hemorrhage of anus and rectum (principal); R19.7 Diarrhea, unspecified
CPT/HCPCS: 36415; 85025; 86140; 86364